=== PATIENT | female | born 1955 | race Caucasian/White ===

== ENCOUNTER 2016-04-13 11:41 | Emergency (ER) | payer MEDICAID, MEDICARE ==
[2016-04-13] MEDS ORDERED: DIPH,PERTUS(ACELL)TETVAC-LF 0.5 ML VIAL IM ONE (12:06)
--- NOTE | 2016-04-13 12:10 | ED ---
Neuro HPI - General Chief Complaint: Neuro Symptoms/Deficit Stated Complaint: Confusion Time Seen by Provider: 04/13/16 11:50 Source: patient, RN notes reviewed Mode of arrival: ambulatory Limitations: no limitations - History of Present Illness Is the patient presenting with stroke symptoms?: No Initial Comments: This is a 60-year-old female history of TIA and diabetes who presents for evaluation for some confusion and a headache. She states she had really bad headache 2 days ago she states she woke up with a bump on her forehead. She does not remember falling. She has some pain to her front forehead as well as to her lower thoracic back area. She states her glucoses been running elevated over last couple days. She denies any fevers chills or sweats. She states that yesterday she was acting pain differently with respective consciously asking her repetitive questions about her doing things correctly. She has no history of syncope does have history of again of TIAs. She has no focal weakness. She denies any other symptoms she has any fevers chills nausea vomiting sweats. - Related Data Home Medications: Home Medications Medication Instructions Recorded Confirmed rOPINIRole HCL [Requip] 3 mg PO HS 06/24/13 04/13/16 Losartan/Hydrochlorothiazide 1 tab PO DAILY 08/06/15 04/13/16 [Hyzaar 100-12.5 Tablet] Insulin Aspart (For Pump) [NovoLOG 0.01 unit SQ-PUMP CONTINUOUS 04/07/16 (For Pump)] Sertraline [Zoloft] 50 mg PO DAILY 04/07/16 04/13/16 ALPRAZolam [Xanax] 1 mg PO BID PRN 04/13/16 04/13/16 Aspirin EC [Ecotrin Low Dose] 81 mg PO DAILY 04/13/16 04/13/16 Allergies/Adverse Reactions: Allergies Allergy/AdvReac Type Severity Reaction Status Date / Time codeine Allergy Itching Verified 04/13/16 13:39 morphine Allergy Rash/Hives Verified 04/13/16 13:39 Sulfa (Sulfonamide Allergy Rash/Hives Verified 04/13/16 13:39 Antibiotics) Review of Systems ROS Statement: Those systems with pertinent positive or pertinent negative responses have been documented in the HPI. ROS Other: All systems not noted in ROS Statement are negative. General Exam - General Exam Comments Initial Comments: This is a well-developed well-nourished awake alert oriented 3 female she does have a [place] Coma Scale of 15 Limitations: no limitations General appearance: alert, anxious Head exam: Present: normocephalic, other (There is a abrasion across the right upper forehead with some localized edema no step-off or crepitation.) Eye exam: Present: normal appearance, PERRL, EOMI. Absent: scleral icterus, conjunctival injection, periorbital swelling ENT exam: Present: normal exam, mucous membranes moist Neck exam: Present: normal inspection. Absent: tenderness, meningismus, lymphadenopathy Respiratory exam: Present: normal lung sounds bilaterally. Absent: respiratory distress, wheezes, rales, rhonchi, stridor Cardiovascular Exam: Present: regular rate, normal rhythm, normal heart sounds. Absent: systolic murmur, diastolic murmur, rubs, gallop, clicks GI/Abdominal exam: Present: soft, normal bowel sounds. Absent: distended, tenderness, guarding, rebound, rigid Extremities exam: Present: normal inspection, full ROM, normal capillary refill. Absent: tenderness, pedal edema, joint swelling, calf tenderness Back exam: Present: normal inspection, tenderness (Some tenderness palpation along the paraspinous muscles of the lower thoracic spine no step-off or crepitation.), paraspinal tenderness, vertebral tenderness. Absent: CVA tenderness (R), CVA tenderness (L), rash noted Neurological exam: Present: alert, oriented X3, CN II-XII intact Psychiatric exam: Present: normal affect, normal mood Skin exam: Present: warm, dry, intact, normal color. Absent: rash Stroke MDM - Lab Data Result diagrams: 04/13/16 12:20 04/13/16 12:20 Lab Results 04/13/16 04/13/16 04/13/16 Range/Units 12:20 12:20 12:20 WBC 6.4 (3.8-10.6) k/uL RBC 4.90 (3.80-5.40) m/uL Hgb 14.8 (11.4-16.0) gm/dL Hct 43.7 (34.0-46.0) % MCV 89.1 (80.0-100.0) fL MCH 30.2 (25.0-35.0) pg MCHC 33.9 (31.0-37.0) g/dL RDW 12.6 (11.5-15.5) % Plt Count 251 (150-450) k/uL Neutrophils % 63 % Lymphocytes % 25 % Monocytes % 6 % Eosinophils % 3 % Basophils % 1 % Neutrophils # 4.0 (1.3-7.7) k/uL Lymphocytes # 1.6 (1.0-4.8) k/uL Monocytes # 0.4 (0-1.0) k/uL Eosinophils # 0.2 (0-0.7) k/uL Basophils # 0.0 (0-0.2) k/uL PT (9.0-12.0) sec INR (<1.1) APTT (22.0-30.0) sec Sodium 141 (137-145) mmol/L Potassium 3.7 (3.5-5.1) mmol/L Chloride 103 (98-107) mmol/L Carbon Dioxide 24 (22-30) mmol/L Anion Gap 14 mmol/L BUN 18 H (7-17) mg/dL Creatinine 0.61 (0.52-1.04) mg/dL Est GFR (MDRD) Af Amer >60 (>60 ml/min/1.73 sqM) Est GFR (MDRD) Non-Af >60 (>60 ml/min/1.73 sqM) Glucose 167 H (74-99) mg/dL POC Glucose (mg/dL) (75-99) mg/dL POC Glu [employer] ID Calcium 9.7 (8.4-10.2) mg/dL Magnesium 1.6 (1.6-2.3) mg/dL Total Bilirubin 0.7 (0.2-1.3) mg/dL AST 18 (14-36) U/L ALT 32 (9-52) U/L Alkaline Phosphatase 79 (38-126) U/L Ammonia (<30) umol/L Total Creatine Kinase 59 (30-135) U/L CK-MB (CK-2) 0.6 (0.0-2.4) ng/mL CK-MB (CK-2) Rel Index 1.0 Troponin I <0.012 (0.000-0.034) ng/mL Total Protein 7.7 (6.3-8.2) g/dL Albumin 4.5 (3.5-5.0) g/dL Urine Color Urine Appearance (Clear) Urine pH (5.0-8.0) Ur Specific Deep Gap (1.001-1.035) Urine Protein (Negative) Urine Glucose (UA) (Negative) Urine Ketones (Negative) Urine Blood (Negative) Urine Nitrate (Negative) Urine Bilirubin (Negative) Urine Urobilinogen (<2.0) mg/dL Ur Leukocyte Esterase (Negative) Urine Opiates Screen (NotDetected) Ur Oxycodone Screen (NotDetected) Urine Methadone Screen (NotDetected) Ur Propoxyphene Screen (NotDetected) Ur Barbiturates Screen (NotDetected) U Tricyclic Antidepress (NotDetected) Ur Phencyclidine Scrn (NotDetected) Ur Amphetamines Screen (NotDetected) U Methamphetamines Scrn (NotDetected) U Benzodiazepines Scrn (NotDetected) Urine Cocaine Screen (NotDetected) U Marijuana (THC) Screen (NotDetected) 04/13/16 04/13/16 04/13/16 Range/Units 12:20 12:25 13:13 WBC (3.8-10.6) k/uL RBC (3.80-5.40) m/uL Hgb (11.4-16.0) gm/dL Hct (34.0-46.0) % MCV (80.0-100.0) fL MCH (25.0-35.0) pg MCHC (31.0-37.0) g/dL RDW (11.5-15.5) % Plt Count (150-450) k/uL Neutrophils % % Lymphocytes % % Monocytes % % Eosinophils % % Basophils % % Neutrophils # (1.3-7.7) k/uL Lymphocytes # (1.0-4.8) k/uL Monocytes # (0-1.0) k/uL Eosinophils # (0-0.7) k/uL Basophils # (0-0.2) k/uL PT 9.8 (9.0-12.0) sec INR 1.0 (<1.1) APTT 24.1 (22.0-30.0) sec Sodium (137-145) mmol/L Potassium (3.5-5.1) mmol/L Chloride (98-107) mmol/L Carbon Dioxide (22-30) mmol/L Anion Gap mmol/L BUN (7-17) mg/dL Creatinine (0.52-1.04) mg/dL Est GFR (MDRD) Af Amer (>60 ml/min/1.73 sqM) Est GFR (MDRD) Non-Af (>60 ml/min/1.73 sqM) Glucose (74-99) mg/dL POC Glucose (mg/dL) 157 H (75-99) mg/dL POC Glu [employer] ID Maki Brewer Calcium (8.4-10.2) mg/dL Magnesium (1.6-2.3) mg/dL Total Bilirubin (0.2-1.3) mg/dL AST (14-36) U/L ALT (9-52) U/L Alkaline Phosphatase (38-126) U/L Ammonia <9 (<30) umol/L Total Creatine Kinase (30-135) U/L CK-MB (CK-2) (0.0-2.4) ng/mL CK-MB (CK-2) Rel Index Troponin I (0.000-0.034) ng/mL Total Protein (6.3-8.2) g/dL Albumin (3.5-5.0) g/dL Urine Color Urine Appearance (Clear) Urine pH (5.0-8.0) Ur Specific Deep Gap (1.001-1.035) Urine Protein (Negative) Urine Glucose (UA) (Negative) Urine Ketones (Negative) Urine Blood (Negative) Urine Nitrate (Negative) Urine Bilirubin (Negative) Urine Urobilinogen (<2.0) mg/dL Ur Leukocyte Esterase (Negative) Urine Opiates Screen (NotDetected) Ur Oxycodone Screen (NotDetected) Urine Methadone Screen (NotDetected) Ur Propoxyphene Screen (NotDetected) Ur Barbiturates Screen (NotDetected) U Tricyclic Antidepress (NotDetected) Ur Phencyclidine Scrn (NotDetected) Ur Amphetamines Screen (NotDetected) U Methamphetamines Scrn (NotDetected) U Benzodiazepines Scrn (NotDetected) Urine Cocaine Screen (NotDetected) U Marijuana (THC) Screen (NotDetected) 04/13/16 04/13/16 Range/Units 13:30 13:30 WBC (3.8-10.6) k/uL RBC (3.80-5.40) m/uL Hgb (11.4-16.0) gm/dL Hct (34.0-46.0) % MCV (80.0-100.0) fL MCH (25.0-35.0) pg MCHC (31.0-37.0) g/dL RDW (11.5-15.5) % Plt Count (150-450) k/uL Neutrophils % % Lymphocytes % % Monocytes % % Eosinophils % % Basophils % % Neutrophils # (1.3-7.7) k/uL Lymphocytes # (1.0-4.8) k/uL Monocytes # (0-1.0) k/uL Eosinophils # (0-0.7) k/uL Basophils # (0-0.2) k/uL PT (9.0-12.0) sec INR (<1.1) APTT (22.0-30.0) sec Sodium (137-145) mmol/L Potassium (3.5-5.1) mmol/L Chloride (98-107) mmol/L Carbon Dioxide (22-30) mmol/L Anion Gap mmol/L BUN (7-17) mg/dL Creatinine (0.52-1.04) mg/dL Est GFR (MDRD) Af Amer (>60 ml/min/1.73 sqM) Est GFR (MDRD) Non-Af (>60 ml/min/1.73 sqM) Glucose (74-99) mg/dL POC Glucose (mg/dL) (75-99) mg/dL POC Glu [employer] ID Calcium (8.4-10.2) mg/dL Magnesium (1.6-2.3) mg/dL Total Bilirubin (0.2-1.3) mg/dL AST (14-36) U/L ALT (9-52) U/L Alkaline Phosphatase (38-126) U/L Ammonia (<30) umol/L Total Creatine Kinase (30-135) U/L CK-MB (CK-2) (0.0-2.4) ng/mL CK-MB (CK-2) Rel Index Troponin I (0.000-0.034) ng/mL Total Protein (6.3-8.2) g/dL Albumin (3.5-5.0) g/dL Urine Color Yellow Urine Appearance Clear (Clear) Urine pH 6.0 (5.0-8.0) Ur Specific [place] 1.014 (1.001-1.035) Urine Protein Negative (Negative) Urine Glucose (UA) Negative (Negative) Urine Ketones Negative (Negative) Urine Blood Negative (Negative) Urine Nitrate Negative (Negative) Urine Bilirubin Negative (Negative) Urine Urobilinogen <2.0 (<2.0) mg/dL Ur Leukocyte Esterase Negative (Negative) Urine Opiates Screen Not Detected (NotDetected) Ur Oxycodone Screen Not Detected (NotDetected) Urine Methadone Screen Not Detected (NotDetected) Ur Propoxyphene Screen Not Detected (NotDetected) Ur Barbiturates Screen Not Detected (NotDetected) U Tricyclic Antidepress Not Detected (NotDetected) Ur Phencyclidine Scrn Not Detected (NotDetected) Ur Amphetamines Screen Not Detected (NotDetected) U Methamphetamines Scrn Not Detected (NotDetected) U Benzodiazepines Scrn Detected H (NotDetected) Urine Cocaine Screen Not Detected (NotDetected) U Marijuana (THC) Screen Not Detected (NotDetected) - NIH Stroke Scale 1a. Level of Consciousness: (0) alert 1b. LOC Questions: (0) answers correctly 1c. LOC Commands: (0) performs tasks correctly 2. Best Gaze: (0) normal 3. Visual: (0) no visual loss 4. Facial Palsy: (0) normal symmetrical movement 5a. Motor Arm Left: (0) no drift 5b. Motor Arm Right: (0) no drift 6a. Motor Leg Left: (0) no drift 6b. Motor Leg Right: (0) no drift 7. Limb Ataxia: (0) absent 8. Sensory: (0) normal 9. Best Language: (0) no aphasia 10. Dysarthria: (0) normal 11. Extinction/Inattention: (0) no abnormality - Medical Decision Making I did reevaluate patient several occasions she has no further symptoms. I did discuss the findings with her CAT scans show no acute findings x-rays are negative for acute findings I did a long discussion with the patient regarding the findings I did offer the patient admission she does not want to be admitted today. She will follow-up with [facility] doctor in the office she relates these symptoms to similar things of happen the past when she is involved in waiting planning she states she was doing a wedding over this past week and before the symptoms started. She was invited to come back at any time. - EKG Data -: EKG Interpreted by Me EKG shows normal: sinus rhythm (Sinus rhythm a rate of 75. Interval and 72 QRS duration 92 QT/QTC of 14/457. Criteria for LVH nonspecific ST configuration.) Past Medical History Past Medical History: CVA/TIA, Diabetes Mellitus, Hyperlipidemia, Hypertension Additional Past Medical History / Comment(s): uti(ecoli)06-13-14, tia, migraines, kidney stones, dm-insulin pump. History of Any Multi-Drug Resistant Organisms: None Reported Past Surgical History: Cholecystectomy Additional Past Surgical History / Comment(s): colonoscopy, pain clinic procedures(cervical blocks). Past Anesthesia/Blood Transfusion Reactions: No Reported Reaction Past Psychological History: Anxiety Smoking Status: Never smoker Past Alcohol Use History: None Reported Past Drug Use History: None Reported - Past Family History Father Family Medical History: Cancer, CVA/TIA, Diabetes Mellitus, Hypertension Additional Family Medical History / Comment(s): colon cancer Mother Family Medical History: Cancer, Hypertension Additional Family Medical History / Comment(s): skin ca, gastric bypass. on mothers side of family hx of strokes Course Vital Signs 04/13/16 04/13/16 04/13/16 11:42 12:00 13:37 Temperature 98.0 F Pulse Rate 82 83 73 Respiratory 20 18 18 Rate Blood Pressure 170/82 151/96 141/81 O2 Sat by Pulse 99 96 Oximetry 04/13/16 04/13/16 04/13/16 14:07 14:37 15:17 Temperature 97.8 F Pulse Rate 81 67 98 Respiratory 18 18 18 Rate Blood Pressure 141/85 135/86 135/82 O2 Sat by Pulse 95 Oximetry Disposition Clinical Impression: Headache, Forehead contusion, Dehydration Disposition: HOME SELF-CARE Condition: Good Instructions: Acute Headache (ED), Facial Contusion (ED), Dehydration (ED)
[2016-04-13 12:38] LABS: Basophils % (A) 1 %; CH 30.7; CHCM 34.6; Eosinophils # (A) 0.2 k/uL (0-0.7); Eosinophils % (A) 3 %; HCT 43.7 % (34.0-46.0); HDW 2.53; HGB 14.8 gm/dL (11.4-16.0); Luc # (Auto) 0.17; Luc % (Auto) 3; Lymphocytes # (A) 1.6 k/uL (1.0-4.8); Lymphocytes % (A) 25 %; MCH 30.2 pg (25.0-35.0); MCHC 33.9 g/dL (31.0-37.0); MCV 89.1 fL (80.0-100.0); Mean Platelet Volume 7.4; Monocytes # (A) 0.4 k/uL (0-1.0); Monocytes % (A) 6 %; Neutrophils % (A) 63 %; RDW 12.6 % (11.5-15.5); WBC 6.4 k/uL (3.8-10.6); WBC (Perox) 5.77
[2016-04-13 12:48] LABS: ALT 32 U/L (9-52); AST 18 U/L (14-36); Alkaline Phosphatase 79 U/L (38-126); Anion Gap 14 mmol/L; Blood Urea Nitrogen 18 mg/dL (7-17); Calcium 9.7 mg/dL (8.4-10.2); Carbon Dioxide 24 mmol/L (22-30); Chloride 103 mmol/L (98-107); Glucose 167 mg/dL (74-99); Magnesium 1.6 mg/dL (1.6-2.3); Non-African American GFR(MDRD) >60 (>60 ml/min/1.73 sqM); Partial Thromboplastin Time 24.1 sec (22.0-30.0); Potassium 3.7 mmol/L (3.5-5.1); Prothrombin Time 9.8 sec (9.0-12.0); Sodium 141 mmol/L (137-145); Total Bilirubin 0.7 mg/dL (0.2-1.3); Total Protein 7.7 g/dL (6.3-8.2)
--- NOTE | 2016-04-13 12:56 | XR ---
EXAMINATION TYPE: XR chest 2V DATE OF EXAM: 04/13/2016 12:49 PM COMPARISON: 08/06/2015 HISTORY: 60 year-old female altered mental status TECHNIQUE: Frontal and lateral views FINDINGS: Lung volumes are low crowding the vascular markings. Heart is normal size. Some hazy density in the l ower lungs likely related to overlying soft tissue. Some mild interstitial prominence likely chronic senescent change. No consolidation or pleural effusion. IMPRESSION: Hypoventilatory and other chronic changes. No acute process seen.
[2016-04-13 13:11] LABS: Creatine Kinase 59 U/L (30-135)
--- NOTE | 2016-04-13 13:12 | CT ---
EXAMINATION TYPE: CT brain yazmin wo con DATE OF EXAM: 04/13/2016 12:56 PM COMPARISON: NONE HISTORY: 60-year-old female with confusion, memory loss and weakness CT DLP: 1353.1 mGycm Automated exposure control for dose reduction was used. Technique: Examination of the head was done in axial plane without intravenous contrast. Coronal and sagittal reconstructions performed. CT of the cervical spine was obtained in axial plane without intravenous injection of contrast mater ial. Coronal and sagittal reformatted images were obtained from the axial views for evaluation of f ractures, spinal alignment and canal. FINDINGS: Head: There is no evidence of acute intracranial hemorrhage, acute ischemic changes, mass, mass-effect, or extra-axial fluid collection. There is no effacement of cerebral sulci or basal subarachnoid cister ns. There is no hydrocephalus. There is no midline shift. Pringle-white matter distinction is preserv ed. Patchy subcortical and deep white matter hypodensities especially in the right greater than left fron estrella lobes appear slightly increased from 08/06/2015 Paranasal sinuses and mastoid air cells well pneumatized. Orbits and globes are intact. Cervical spine: No craniocervical junction of the midbody, predental space widening, or prevertebral soft tissue swel ling. There is reversal of the normal cervical lordosis without malalignment. Moderate disc/end plate degenerative change especially at C5-C7 levels with disc osteophyte complexes causing mild to moderate narrowing of the spinal canal. Additional scattered facet and uncovertebral joint arthropathy contributing to variable mild to moder ate neural foraminal stenoses, greatest on the right at C3-C4, C5-C6, and C6-C7. No acute fracture of the cervical spine. Sagittal and coronal reformatted images confirm above findings. COMBINED IMPRESSION: 1. [id number] changes of chronic small vessel ischemic disease show interval increase from 08/05. No acute intracranial abnormality seen. 2. No acute fracture or malalignment of the cervical spine. Moderate spondylotic changes as above.
[2016-04-13 13:17] LABS: Glucose,Whole Blood 157 mg/dL (75-99)
[2016-04-13 13:23] LABS: Creatine Kinase MB 0.6 ng/mL (0.0-2.4); Troponin I <0.012 ng/mL (0.000-0.034)
[2016-04-13] MEDS ORDERED: ACETAMINOPHEN IV (For NPO) 1,000 MG in EMPTY BAG 1 BAG IVPB STA (13:39)
[2016-04-13 13:48] LABS: Appearance,Urine Clear (Clear); Bilirubin,Urine Negative (Negative); Glucose,Urine (UA) Negative (Negative); Ketones,Urine Negative (Negative); Leukocyte Esterase,Urine Negative (Negative); Nitrite,Urine Negative (Negative); Protein,Urine Negative (Negative); Specific Gravity,Urine 1.014 (1.001-1.035); UA Billing (MACRO vs. MICRO) CHEM; Urobilinogen,Urine <2.0 mg/dL (<2.0)
[2016-04-13 15:48] VITALS: BP 138/83; PULSE 80; RESP 20; TEMP 97
== END 2016-04-13 15:52 | disposition home or self-care (01) ==
LOC: EC 11:41
DX: R51 Headache (principal); E86.0 Dehydration; S00.83XA Contusion of other part of head, initial encounter; X58.XXXA Exposure to other specified factors, initial encounter; I10 Essential (primary) hypertension; E11.9 Type 2 diabetes mellitus without complications; F41.9 Anxiety disorder, unspecified; Z79.82 Long term (current) use of aspirin; Z79.4 Long term (current) use of insulin; Z96.41 Presence of insulin pump (external) (internal); Z86.73 Personal history of transient ischemic attack (TIA), and cerebral infarction without residual deficits; Z23 Encounter for immunization
CPT/HCPCS: 36415; 93005; 80053; 82140; 82550; 82553; 83735; 84484; 85025; 85610; 85730; 81003; 80306; 71020; 72125; 70450; 90715; 99285; 96365; 96366; J0131; 90471

== ENCOUNTER → 2016-11-01 | Outpatient (CLI) | payer MEDICAID, MEDICARE ==
[2016-11-01 09:46] LABS: ALT 42 U/L (9-52); AST 22 U/L (14-36); Alkaline Phosphatase 76 U/L (38-126); Anion Gap 11 mmol/L; Blood Urea Nitrogen 18 mg/dL (7-17); Calcium 9.5 mg/dL (8.4-10.2); Carbon Dioxide 21 mmol/L (22-30); Chloride 110 mmol/L (98-107); Cholesterol 216 mg/dL (<200); Glucose 104 mg/dL (74-99); HDL Cholesterol 57 mg/dL (40-60); Non-African American GFR(MDRD) >60 (>60 ml/min/1.73 sqM); Sodium 142 mmol/L (137-145); Total Bilirubin 0.9 mg/dL (0.2-1.3); Total Protein 7.4 g/dL (6.3-8.2)
[2016-11-01 17:11] LABS: Urine Creatinine 158.1 mg/dL
== END | disposition home or self-care (01) ==
LOC: LABWHC1 08:33
PROVIDERS: ATTEND Internal Medicine Endocrinology, Diabetes & Metabolism
DX: E11.65 Type 2 diabetes mellitus with hyperglycemia (principal)
CPT/HCPCS: 36415; 80053; 80061; 82043; 82570; 84443; 84681

== ENCOUNTER 2016-11-17 20:33 | Emergency (ER) | payer MEDICAID, MEDICARE ==
[2016-11-17] MEDS ORDERED: METOCLOPRAMIDE 5 MG/ML 2 ML VIAL IVP STA (22:54)
[2016-11-17] MEDS ORDERED: SODIUM CHLORIDE 0.9% 2,000 ML IV STA (22:54)
[2016-11-17] MEDS ORDERED: PANTOPRAZOLE 40 MG/10 ML VIAL IVP STA (22:54)
[2016-11-17] MEDS ORDERED: KETOROLAC 30 MG/ML 1 ML VIAL IVP STA (22:54)
[2016-11-17] MEDS ORDERED: diphenhydrAMINE 50 MG/ML 1 ML VIAL IVP STA (22:54)
[2016-11-17] MEDS ORDERED: RX INFO: IV CONTRAST WAS GIVEN 1 EACH MISC MISCELLANE PRN (22:56)
--- NOTE | 2016-11-17 23:03 | ED ---
Abdominal Pain HPI - General Chief Complaint: Abdominal Pain Stated Complaint: Abd Pain Time Seen by Provider: 11/17/16 22:24 Source: patient, RN notes reviewed, old records reviewed Mode of arrival: ambulatory Limitations: no limitations - History of Present Illness Initial Comments: This is a 61-year-old female presents emergency Department with intermittent left lower quadrant pain for the past month. Patient reports that over the past 2 days with been increasingly worse. Patient states that it feels like she has pressure on her bladder. She denies any dysuria or urgency states she is unsure if she has a urinary tract infection or may be a exacerbation of diverticulitis. She denies any specific fevers or chills. She reports that the pain is worse with going over bumps in the car or jumping up and down. Patient denies any blood in her stools. She did have a normal bowel movement earlier today. - Related Data Home Medications Medication Instructions Recorded Confirmed rOPINIRole HCL [Requip] 3 mg PO HS 06/24/13 04/13/16 Losartan/Hydrochlorothiazide 1 tab PO DAILY 08/06/15 04/13/16 [Hyzaar 100-12.5 Tablet] Insulin Aspart (For Pump) [NovoLOG 0.01 unit SQ-PUMP CONTINUOUS 04/07/16 (For Pump)] Sertraline [Zoloft] 50 mg PO DAILY 04/07/16 04/13/16 ALPRAZolam [Xanax] 1 mg PO BID PRN 04/13/16 04/13/16 Aspirin EC [Ecotrin Low Dose] 81 mg PO DAILY 04/13/16 04/13/16 Previous Rx's Medication Instructions Recorded Amoxic-Pot Clav 875-125Mg 1 tab PO Q12HR #20 tablet 11/18/16 [Augmentin 875-125] traMADol HCl [Ultram] 50 mg PO Q4H PRN #12 tab 11/18/16 Allergies Allergy/AdvReac Type Severity Reaction Status Date / Time codeine Allergy Itching Verified 11/17/16 21:41 morphine Allergy Rash/Hives Verified 11/17/16 21:41 Sulfa (Sulfonamide Allergy Rash/Hives Verified 11/17/16 21:41 Antibiotics) Review of Systems ROS Statement: Those systems with pertinent positive or pertinent negative responses have been documented in the HPI. ROS Other: All systems not noted in ROS Statement are negative. Past Medical History Past Medical History: CVA/TIA, Diabetes Mellitus, Hyperlipidemia, Hypertension Additional Past Medical History / Comment(s): uti(ecoli)15, tia, migraines, kidney stones, dm-insulin pump. History of Any Multi-Drug Resistant Organisms: None Reported Past Surgical History: Cholecystectomy Additional Past Surgical History / Comment(s): colonoscopy, pain clinic procedures(cervical blocks). Past Anesthesia/Blood Transfusion Reactions: No Reported Reaction Past Psychological History: Anxiety Smoking Status: Never smoker Past Alcohol Use History: None Reported Past Drug Use History: None Reported - Past Family History Father Family Medical History: Cancer, CVA/TIA, Diabetes Mellitus, Hypertension Additional Family Medical History / Comment(s): colon cancer Mother Family Medical History: Cancer, Hypertension Additional Family Medical History / Comment(s): skin ca, gastric bypass. on mothers side of family hx of strokes General Exam - General Exam Comments Initial Comments: His is a 61-year-old female. No acute distress. Limitations: no limitations General appearance: alert, in no apparent distress Head exam: Present: atraumatic, normocephalic, normal inspection Eye exam: Present: normal appearance, PERRL, EOMI. Absent: scleral icterus, conjunctival injection, periorbital swelling ENT exam: Present: normal exam, mucous membranes moist Neck exam: Present: normal inspection. Absent: tenderness, meningismus, lymphadenopathy Respiratory exam: Present: normal lung sounds bilaterally. Absent: respiratory distress, wheezes, rales, rhonchi, stridor Cardiovascular Exam: Present: regular rate, normal rhythm, normal heart sounds. Absent: systolic murmur, diastolic murmur, rubs, gallop, clicks GI/Abdominal exam: Present: soft, tenderness (LLQ pain), normal bowel sounds. Absent: distended, guarding, rebound, rigid Extremities exam: Present: normal inspection Back exam: Present: normal inspection Neurological exam: Present: alert, oriented X3, CN II-XII intact Psychiatric exam: Present: normal affect, normal mood Course Vital Signs 11/17/16 11/17/16 11/17/16 21:39 22:51 23:36 Temperature 98.0 F 98.4 F 96.9 F L Pulse Rate 77 70 94 Respiratory 18 18 18 Rate Blood Pressure 187/88 192/88 175/148 O2 Sat by Pulse 99 98 99 Oximetry 11/18/16 01:17 Temperature 97.8 F Pulse Rate 73 Respiratory 16 Rate Blood Pressure 165/80 O2 Sat by Pulse 98 Oximetry Medical Decision Making - Medical Decision Making This is a 61-year-old female presents emergency Department with intermittent left lower quadrant pain for the past month. Patient reports that over the past 2 days with been increasingly worse. Patient states that it feels like she has pressure on her bladder. She denies any dysuria or urgency states she is unsure if she has a urinary tract infection or may be a exacerbation of diverticulitis. Patient did have significant LLQ tenderness. PAtient lab work was unremarkable, UA shows no signs of infection. WBC within normal limitis. At this time patient informed of results. Discussed that she may have a mild or early diverticulitis. Patient will be started on augmentin and advised to continute to stay hydrated. Discussed close follow up with PCP, and return parameters discussed. - Lab Data Result diagrams: 11/17/16 23:15 11/17/16 23:15 Lab Results 11/17/16 11/17/16 11/17/16 Range/Units 23:15 23:15 23:15 WBC 5.7 (3.8-10.6) k/uL RBC 4.25 (3.80-5.40) m/uL Hgb 12.9 (11.4-16.0) gm/dL Hct 39.7 (34.0-46.0) % MCV 93.3 (80.0-100.0) fL MCH 30.3 (25.0-35.0) pg MCHC 32.4 (31.0-37.0) g/dL RDW 13.9 (11.5-15.5) % Plt Count 262 (150-450) k/uL Neutrophils % 55 % Lymphocytes % 32 % Monocytes % 8 % Eosinophils % 4 % Basophils % 1 % Neutrophils # 3.1 (1.3-7.7) k/uL Lymphocytes # 1.8 (1.0-4.8) k/uL Monocytes # 0.4 (0-1.0) k/uL Eosinophils # 0.2 (0-0.7) k/uL Basophils # 0.0 (0-0.2) k/uL PT 9.7 (9.0-12.0) sec INR 0.9 (<1.2) APTT 24.6 (22.0-30.0) sec Sodium 141 (137-145) mmol/L Potassium 4.2 (3.5-5.1) mmol/L Chloride 104 (98-107) mmol/L Carbon Dioxide 28 (22-30) mmol/L Anion Gap 9 mmol/L BUN 14 (7-17) mg/dL Creatinine 0.60 (0.52-1.04) mg/dL Est GFR (MDRD) Af Amer >60 (>60 ml/min/1.73 sqM) Est GFR (MDRD) Non-Af >60 (>60 ml/min/1.73 sqM) Glucose 289 H (74-99) mg/dL Calcium 9.8 (8.4-10.2) mg/dL Total Bilirubin 0.3 (0.2-1.3) mg/dL AST 16 (14-36) U/L ALT 36 (9-52) U/L Alkaline Phosphatase 73 (38-126) U/L Total Protein 6.3 (6.3-8.2) g/dL Albumin 3.7 (3.5-5.0) g/dL Amylase 34 (30-110) U/L Lipase 135 (23-300) U/L Urine Color Urine Appearance (Clear) Urine pH (5.0-8.0) Ur Specific [place] (1.001-1.035) Urine Protein (Negative) Urine Glucose (UA) (Negative) Urine Ketones (Negative) Urine Blood (Negative) Urine Nitrite (Negative) Urine Bilirubin (Negative) Urine Urobilinogen (<2.0) mg/dL Ur Leukocyte Esterase (Negative) Ur Squamous Epith Cells (0-4) /hpf Amorphous Sediment (None) /hpf Urine Bacteria (None) /hpf 11/17/16 Range/Units 23:35 WBC (3.8-10.6) k/uL RBC (3.80-5.40) m/uL Hgb (11.4-16.0) gm/dL Hct (34.0-46.0) % MCV (80.0-100.0) fL MCH (25.0-35.0) pg MCHC (31.0-37.0) g/dL RDW (11.5-15.5) % Plt Count (150-450) k/uL Neutrophils % % Lymphocytes % % Monocytes % % Eosinophils % % Basophils % % Neutrophils # (1.3-7.7) k/uL Lymphocytes # (1.0-4.8) k/uL Monocytes # (0-1.0) k/uL Eosinophils # (0-0.7) k/uL Basophils # (0-0.2) k/uL PT (9.0-12.0) sec INR (<1.2) APTT (22.0-30.0) sec Sodium (137-145) mmol/L Potassium (3.5-5.1) mmol/L Chloride (98-107) mmol/L Carbon Dioxide (22-30) mmol/L Anion Gap mmol/L BUN (7-17) mg/dL Creatinine (0.52-1.04) mg/dL Est GFR (MDRD) Af Amer (>60 ml/min/1.73 sqM) Est GFR (MDRD) Non-Af (>60 ml/min/1.73 sqM) Glucose (74-99) mg/dL Calcium (8.4-10.2) mg/dL Total Bilirubin (0.2-1.3) mg/dL AST (14-36) U/L ALT (9-52) U/L Alkaline Phosphatase (38-126) U/L Total Protein (6.3-8.2) g/dL Albumin (3.5-5.0) g/dL Amylase (30-110) U/L Lipase (23-300) U/L Urine Color Light Yellow Urine Appearance Cloudy H (Clear) Urine pH 7.0 (5.0-8.0) Ur Specific [place] 1.012 (1.001-1.035) Urine Protein Negative (Negative) Urine Glucose (UA) 4+ H (Negative) Urine Ketones Negative (Negative) Urine Blood Negative (Negative) Urine Nitrite Negative (Negative) Urine Bilirubin Negative (Negative) Urine Urobilinogen <2.0 (<2.0) mg/dL Ur Leukocyte Esterase Trace H (Negative) Ur Squamous Epith Cells 1 (0-4) /hpf Amorphous Sediment Rare H (None) /hpf Urine Bacteria Occasional H (None) /hpf - Radiology Data Radiology results: report reviewed CT abdomen and pelvis with contrast performed. Small upper abdominal ventral hernia contents. This is stable compared to exam. No acute abnormality seen. Small stable left renal cortical cyst. Disposition Clinical Impression: Abdominal pain Disposition: HOME SELF-CARE Condition: Good Instructions: Abdominal Pain (ED) Additional Instructions: recommendation follows up with primary care provider within the next 1-2 days. Take pain medication and does return. Return to the emergency department if any alarming signs or his occur. Prescriptions: Amoxic-Pot Clav 875-125Mg [Augmentin 875-125] 1 tab PO Q12HR #20 tablet traMADol HCl [Ultram] 50 mg PO Q4H PRN #12 tab PRN Reason: Pain Referrals: Harshil Robledo DO [Primary Care Provider] - 1-2 days Time of Disposition: 01:32
[2016-11-17 23:38] LABS: Basophils % (A) 1 %; CH 31.1; CHCM 33.5; Eosinophils # (A) 0.2 k/uL (0-0.7); Eosinophils % (A) 4 %; HCT 39.7 % (34.0-46.0); HDW 2.43; HGB 12.9 gm/dL (11.4-16.0); Luc # (Auto) 0.12; Luc % (Auto) 2; Lymphocytes # (A) 1.8 k/uL (1.0-4.8); Lymphocytes % (A) 32 %; MCH 30.3 pg (25.0-35.0); MCHC 32.4 g/dL (31.0-37.0); MCV 93.3 fL (80.0-100.0); Mean Platelet Volume 7.7; Monocytes # (A) 0.4 k/uL (0-1.0); Monocytes % (A) 8 %; Neutrophils # (A) 3.1 k/uL (1.3-7.7); Neutrophils % (A) 55 %; RBC 4.25 m/uL (3.80-5.40); RDW 13.9 % (11.5-15.5); WBC 5.7 k/uL (3.8-10.6); WBC (Perox) 6.02
[2016-11-17 23:44] LABS: Amorphous Sediment,Urine Rare /hpf; Appearance,Urine Cloudy (Clear); Bacteria,Urine Occasional /hpf; Bilirubin,Urine Negative (Negative); Glucose,Urine (UA) 4+ (Negative); Ketones,Urine Negative (Negative); Leukocyte Esterase,Urine Trace (Negative); Nitrite,Urine Negative (Negative); Particle Count 7417; Protein,Urine Negative (Negative); Specific Gravity,Urine 1.012 (1.001-1.035); Squamous Epithelial Cell,Urine 1 /hpf (0-4); UA Billing (MACRO vs. MICRO) MICRO; Urobilinogen,Urine <2.0 mg/dL (<2.0)
[2016-11-17 23:50] LABS: INR 0.9 (<1.2); Partial Thromboplastin Time 24.6 sec (22.0-30.0); Prothrombin Time 9.7 sec (9.0-12.0)
[2016-11-17 23:55] LABS: ALT 36 U/L (9-52); AST 16 U/L (14-36); Alkaline Phosphatase 73 U/L (38-126); Amylase 34 U/L (30-110); Anion Gap 9 mmol/L; Blood Urea Nitrogen 14 mg/dL (7-17); Calcium 9.8 mg/dL (8.4-10.2); Carbon Dioxide 28 mmol/L (22-30); Chloride 104 mmol/L (98-107); Glucose 289 mg/dL (74-99); Non-African American GFR(MDRD) >60 (>60 ml/min/1.73 sqM); Potassium 4.2 mmol/L (3.5-5.1); Sodium 141 mmol/L (137-145); Total Bilirubin 0.3 mg/dL (0.2-1.3); Total Protein 6.3 g/dL (6.3-8.2)
--- NOTE | 2016-11-18 01:05 | CT ---
EXAMINATION TYPE: CT abdomen pelvis w con DATE OF EXAM: 11/18/2016 COMPARISON: 07/14/2013 HISTORY: lower abd pain CT DLP: 895.60 mGycm Automated exposure control for dose reduction was used. TECHNIQUE: Helical acquisition of images was performed from the lung bases through the pelvis. CONTRAST: Performed without Oral Contrast and with IV Contrast, patient injected with 100 mL of Omnipaque 300. FINDINGS: Lung bases are clear. There is no pleural effusion. Liver spleen pancreas appear normal. There are clips from cholecystectomy. Bile ducts are not dilated . There is no adrenal mass. Kidneys show satisfactory contrast opacification. There is no hydronephrosi s. Ureters are not dilated. There is no retroperitoneal adenopathy. Appendix appears normal. I see no intestinal wall thickening. There are no dilated loops. Bladder distends smoothly. There is no sign of a pelvic mass. Uterus is anteverted. There is a small cortical cyst on the anterior left kidney. There is ventral hernia that contains some omental fat. This measures approximately 2 cm. IMPRESSION: SMALL UPPER ABDOMINAL VENTRAL HERNIA CONTAINS FAT. THIS IS STABLE COMPARED TO OLD EXAM. NO ACUTE ABNO RMALITY SEEN. SMALL STABLE LEFT RENAL CORTICAL CYST
[2016-11-18 01:19] VITALS: BP 165/80; PULSE 73; RESP 16; TEMP 97.8
== END 2016-11-18 02:04 | disposition home or self-care (01) ==
LOC: EC 20:33
DX: R10.32 Left lower quadrant pain (principal); N28.1 Cyst of kidney, acquired; K43.9 Ventral hernia without obstruction or gangrene; I10 Essential (primary) hypertension; F41.9 Anxiety disorder, unspecified; E11.9 Type 2 diabetes mellitus without complications; Z96.41 Presence of insulin pump (external) (internal); Z79.82 Long term (current) use of aspirin; Z79.899 Other long term (current) drug therapy; Z88.2 Allergy status to sulfonamides; Z88.5 Allergy status to narcotic agent; Z80.0 Family history of malignant neoplasm of digestive organs; Z83.79 Family history of other diseases of the digestive system; Z90.49 Acquired absence of other specified parts of digestive tract
CPT/HCPCS: 99284 ×2; 96374 ×2; 96375 ×4; 96361 ×2; 36415; 80053; 82150; 83690; 85025; 85610; 85730; 81001; 87086; 74177; J1200; J2765; J1885; Q9967; C9113

== ENCOUNTER 2016-12-08 19:28 | Observation (INO) | payer MEDICAID, MEDICARE ==
[2016-12-08] MEDS ORDERED: NITROGLYCERIN OINT 1 INCH/GM PACKET TOPICAL STA (19:53)
[2016-12-08] MEDS ORDERED: ASPIRIN 81 MG PO STA (19:53)
--- NOTE | 2016-12-08 19:56 | ED ---
General Adult HPI - General Source: patient, family, RN notes reviewed Mode of arrival: ambulatory Limitations: no limitations <Jose Jain - Last Filed: 12/08/16 21:08> <Franco Mae - Last Filed: 01/31/17 07:09> - General Chief complaint: Chest Pain Stated complaint: Chest Pain Time Seen by Provider: 12/08/16 19:30 - History of Present Illness Initial comments: This is a 61-year-old female with a past history significant for high blood pressure high cholesterol and diabetes. Patient states she's not compliant with her medications at all. Patient comes in today because at 6:30 today started having severe chest pain radiated into her neck and arm she was short of breath diaphoretic and nauseated. Patient states that lasted for about 5 minutes at its most severe and settled down on and another 5 minutes. Patient states currently she still feels a little bit of chest discomfort. Patient has no fever chills or cough. Patient has no abdominal pain patient denies any vomiting or diarrhea. Patient denies any dysuria hematuria urinary frequency. Patient denies any smoking history. (Jose Jain) - Related Data Home Medications Medication Instructions Recorded Confirmed rOPINIRole HCL [Requip] 3 mg PO HS 06/24/13 12/08/16 Losartan/Hydrochlorothiazide 1 tab PO DAILY 08/06/15 12/08/16 [Hyzaar 100-12.5 Tablet] Insulin Aspart (For Pump) [NovoLOG 0.01 unit SQ-PUMP CONTINUOUS 04/07/16 (For Pump)] Atorvastatin [Lipitor] 10 mg PO HS 12/08/16 12/08/16 Ibuprofen [Motrin] 600 mg PO Q6HR PRN 12/08/16 12/08/16 Previous Rx's Medication Instructions Recorded Aspirin EC [Ecotrin Low Dose] 81 mg PO DAILY #30 tablet. 12/09/16 Metoprolol Tartrate [Lopressor] 12.5 mg PO BID #60 tab 12/09/16 Allergies Allergy/AdvReac Type Severity Reaction Status Date / Time codeine Allergy Itching Verified 12/08/16 19:54 morphine Allergy Rash/Hives Verified 12/08/16 19:54 Sulfa (Sulfonamide Allergy Rash/Hives Verified 12/08/16 19:54 Antibiotics) Review of Systems ROS Other: All systems not noted in ROS Statement are negative. <Jose Jain - Last Filed: 12/08/16 21:08> ROS Other: All systems not noted in ROS Statement are negative. <Franco Mae - Last Filed: 01/31/17 07:09> ROS Statement: Those systems with pertinent positive or pertinent negative responses have been documented in the HPI. Past Medical History Past Medical History: CVA/TIA, Diabetes Mellitus, Hyperlipidemia, Hypertension Additional Past Medical History / Comment(s): uti(ecoli)15, tia, migraines, kidney stones, dm-insulin pump. History of Any Multi-Drug Resistant Organisms: None Reported Past Surgical History: Cholecystectomy Additional Past Surgical History / Comment(s): colonoscopy, pain clinic procedures(cervical blocks). Past Anesthesia/Blood Transfusion Reactions: No Reported Reaction Past Psychological History: Anxiety Smoking Status: Never smoker Past Alcohol Use History: None Reported Past Drug Use History: None Reported - Past Family History Father Family Medical History: Cancer, CVA/TIA, Diabetes Mellitus, Hypertension Additional Family Medical History / Comment(s): colon cancer Mother Family Medical History: Cancer, Hypertension Additional Family Medical History / Comment(s): skin ca, gastric bypass. on mothers side of family hx of strokes <Jose Jain - Last Filed: 12/08/16 21:08> General Exam Limitations: no limitations <Jose Jain - Last Filed: 12/08/16 21:08> <Franco Mae - Last Filed: 01/31/17 07:09> - General Exam Comments Initial Comments: GENERAL: Patient is well-developed and well-nourished. Patient is nontoxic and well- hydrated and is in mild distress. ENT: Neck is soft and supple. No significant lymphadenopathy is noted. Oropharynx is clear. Moist mucous membranes. Neck has full range of motion without eliciting any pain. EYES: The sclera were anicteric and conjunctiva were pink and moist. Extraocular movements were intact and pupils were equal round and reactive to light. Eyelids were unremarkable. PULMONARY: Unlabored respirations. Good breath sounds bilaterally. No audible rales rhonchi or wheezing was noted. CARDIOVASCULAR: There is a regular rate and rhythm without any murmurs gallops or rubs. ABDOMEN: Soft and nontender with normal bowel sounds. No palpable organomegaly was noted. There is no palpable pulsatile mass. SKIN: Skin is clear with no lesions or rashes and otherwise unremarkable. NEUROLOGIC: Patient is alert and oriented x3. Cranial nerves II through XII are grossly intact. Motor and sensory are also intact. Normal speech, volume and content. Symmetrical smile. MUSCULOSKELETAL: Normal extremities with adequate strength and full range of motion. No lower extremity swelling or edema. No calf tenderness. LYMPHATICS: No significant lymphadenopathy is noted PSYCHIATRIC: Normal psychiatric evaluation. (Jose Jain) Vital Signs 12/08/16 12/08/16 12/08/16 19:31 20:31 22:26 Temperature 98 F Pulse Rate 128 H 105 H 110 H Pulse Rate [ Bilateral Radial] Respiratory 18 16 20 Rate Blood Pressure 172/80 160/84 146/77 Blood Pressure [Left Arm] O2 Sat by Pulse 96 96 96 Oximetry 12/08/16 12/09/16 12/09/16 23:17 00:22 01:22 Temperature Pulse Rate 104 H 99 Pulse Rate [ 96 Bilateral Radial] Respiratory 16 16 16 Rate Blood Pressure 165/79 136/72 Blood Pressure [Left Arm] O2 Sat by Pulse 99 94 L Oximetry 12/09/16 12/09/16 12/09/16 02:07 04:00 07:54 Temperature 98.8 F 98.6 F Pulse Rate Pulse Rate [ 101 H 99 104 H Bilateral Radial] Respiratory 16 16 18 Rate Blood Pressure Blood Pressure 127/77 165/85 [Left Arm] O2 Sat by Pulse 94 L 95 Oximetry 12/09/16 12/09/16 08:00 12:00 Temperature Pulse Rate Pulse Rate [ 104 H 104 H Bilateral Radial] Respiratory 18 18 Rate Blood Pressure Blood Pressure [Left Arm] O2 Sat by Pulse Oximetry Medical Decision Making - Lab Data Result diagrams: 12/08/16 19:47 12/08/16 19:47 <Jose Jain - Last Filed: 12/08/16 21:08> - Lab Data Result diagrams: 12/08/16 19:47 12/08/16 19:47 <Franco Mae - Last Filed: 01/31/17 07:09> - Medical Decision Making EKG shows sinus tachycardia at [address] interval 254 QRS is 80 QT interval 302 QTC is 435 per patient's EKG shows no ST segment elevation or depression or T wave normalities are noted. Dr. Abad will be taking over the care of this patient at 9 PM (Jose Jain) - Lab Data Lab Results 12/08/16 12/08/16 12/08/16 Range/Units 19:47 19:47 19:47 WBC 10.4 (3.8-10.6) k/uL RBC 4.97 (3.80-5.40) m/uL Hgb 14.7 (11.4-16.0) gm/dL Hct 45.3 (34.0-46.0) % MCV 91.2 (80.0-100.0) fL MCH 29.6 (25.0-35.0) pg MCHC 32.5 (31.0-37.0) g/dL RDW 14.1 (11.5-15.5) % Plt Count 310 (150-450) k/uL Neutrophils % 77 % Lymphocytes % 15 % Monocytes % 5 % Eosinophils % 2 % Basophils % 0 % Neutrophils # 8.1 H (1.3-7.7) k/uL Lymphocytes # 1.6 (1.0-4.8) k/uL Monocytes # 0.5 (0-1.0) k/uL Eosinophils # 0.2 (0-0.7) k/uL Basophils # 0.0 (0-0.2) k/uL PT 9.4 (9.0-12.0) sec INR 0.9 (<1.2) APTT 24.0 (22.0-30.0) sec D-Dimer 0.61 H (<0.60) mg/L FEU Sodium 138 (137-145) mmol/L Potassium 4.5 (3.5-5.1) mmol/L Chloride 102 (98-107) mmol/L Carbon Dioxide 23 (22-30) mmol/L Anion Gap 13 mmol/L BUN 22 H (7-17) mg/dL Creatinine 0.70 (0.52-1.04) mg/dL Est GFR (MDRD) Af Amer >60 (>60 ml/min/1.73 sqM) Est GFR (MDRD) Non-Af >60 (>60 ml/min/1.73 sqM) Glucose 391 H (74-99) mg/dL Calcium 9.8 (8.4-10.2) mg/dL Magnesium 1.6 (1.6-2.3) mg/dL Total Bilirubin 0.3 (0.2-1.3) mg/dL AST 20 (14-36) U/L ALT 54 H (9-52) U/L Alkaline Phosphatase 100 (38-126) U/L Total Creatine Kinase (30-135) U/L CK-MB (CK-2) (0.0-2.4) ng/mL CK-MB (CK-2) Rel Index Troponin I (0.000-0.034) ng/mL NT-Pro-B Natriuret Pep pg/mL Total Protein 7.4 (6.3-8.2) g/dL Albumin 4.4 (3.5-5.0) g/dL Urine Opiates Screen (NotDetected) Ur Oxycodone Screen (NotDetected) Urine Methadone Screen (NotDetected) Ur Propoxyphene Screen (NotDetected) Ur Barbiturates Screen (NotDetected) U Tricyclic Antidepress (NotDetected) Ur Phencyclidine Scrn (NotDetected) Ur Amphetamines Screen (NotDetected) U Methamphetamines Scrn (NotDetected) U Benzodiazepines Scrn (NotDetected) Urine Cocaine Screen (NotDetected) U Marijuana (THC) Screen (NotDetected) 12/08/16 12/08/16 12/08/16 Range/Units 19:47 19:47 20:28 WBC (3.8-10.6) k/uL RBC (3.80-5.40) m/uL Hgb (11.4-16.0) gm/dL Hct (34.0-46.0) % MCV (80.0-100.0) fL MCH (25.0-35.0) pg MCHC (31.0-37.0) g/dL RDW (11.5-15.5) % Plt Count (150-450) k/uL Neutrophils % % Lymphocytes % % Monocytes % % Eosinophils % % Basophils % % Neutrophils # (1.3-7.7) k/uL Lymphocytes # (1.0-4.8) k/uL Monocytes # (0-1.0) k/uL Eosinophils # (0-0.7) k/uL Basophils # (0-0.2) k/uL PT (9.0-12.0) sec INR (<1.2) APTT (22.0-30.0) sec D-Dimer (<0.60) mg/L FEU Sodium (137-145) mmol/L Potassium (3.5-5.1) mmol/L Chloride (98-107) mmol/L Carbon Dioxide (22-30) mmol/L Anion Gap mmol/L BUN (7-17) mg/dL Creatinine (0.52-1.04) mg/dL Est GFR (MDRD) Af Amer (>60 ml/min/1.73 sqM) Est GFR (MDRD) Non-Af (>60 ml/min/1.73 sqM) Glucose (74-99) mg/dL Calcium (8.4-10.2) mg/dL Magnesium (1.6-2.3) mg/dL Total Bilirubin (0.2-1.3) mg/dL AST (14-36) U/L ALT (9-52) U/L Alkaline Phosphatase (38-126) U/L Total Creatine Kinase (30-135) U/L CK-MB (CK-2) (0.0-2.4) ng/mL CK-MB (CK-2) Rel Index Troponin I 0.012 (0.000-0.034) ng/mL NT-Pro-B Natriuret Pep 30 pg/mL Total Protein (6.3-8.2) g/dL Albumin (3.5-5.0) g/dL Urine Opiates Screen Not Detected (NotDetected) Ur Oxycodone Screen Not Detected (NotDetected) Urine Methadone Screen Not Detected (NotDetected) Ur Propoxyphene Screen Not Detected (NotDetected) Ur Barbiturates Screen Not Detected (NotDetected) U Tricyclic Antidepress Not Detected (NotDetected) Ur Phencyclidine Scrn Not Detected (NotDetected) Ur Amphetamines Screen Not Detected (NotDetected) U Methamphetamines Scrn Not Detected (NotDetected) U Benzodiazepines Scrn Detected H (NotDetected) Urine Cocaine Screen Not Detected (NotDetected) U Marijuana (THC) Screen Not Detected (NotDetected) 12/08/16 Range/Units 22:25 WBC (3.8-10.6) k/uL RBC (3.80-5.40) m/uL Hgb (11.4-16.0) gm/dL Hct (34.0-46.0) % MCV (80.0-100.0) fL MCH (25.0-35.0) pg MCHC (31.0-37.0) g/dL RDW (11.5-15.5) % Plt Count (150-450) k/uL Neutrophils % % Lymphocytes % % Monocytes % % Eosinophils % % Basophils % % Neutrophils # (1.3-7.7) k/uL Lymphocytes # (1.0-4.8) k/uL Monocytes # (0-1.0) k/uL Eosinophils # (0-0.7) k/uL Basophils # (0-0.2) k/uL PT (9.0-12.0) sec INR (<1.2) APTT (22.0-30.0) sec D-Dimer (<0.60) mg/L FEU Sodium (137-145) mmol/L Potassium (3.5-5.1) mmol/L Chloride (98-107) mmol/L Carbon Dioxide (22-30) mmol/L Anion Gap mmol/L BUN (7-17) mg/dL Creatinine (0.52-1.04) mg/dL Est GFR (MDRD) Af Amer (>60 ml/min/1.73 sqM) Est GFR (MDRD) Non-Af (>60 ml/min/1.73 sqM) Glucose (74-99) mg/dL Calcium (8.4-10.2) mg/dL Magnesium (1.6-2.3) mg/dL Total Bilirubin (0.2-1.3) mg/dL AST (14-36) U/L ALT (9-52) U/L Alkaline Phosphatase (38-126) U/L Total Creatine Kinase 61 (30-135) U/L CK-MB (CK-2) 0.9 (0.0-2.4) ng/mL CK-MB (CK-2) Rel Index 1.5 Troponin I (0.000-0.034) ng/mL NT-Pro-B Natriuret Pep pg/mL Total Protein (6.3-8.2) g/dL Albumin (3.5-5.0) g/dL Urine Opiates Screen (NotDetected) Ur Oxycodone Screen (NotDetected) Urine Methadone Screen (NotDetected) Ur Propoxyphene Screen (NotDetected) Ur Barbiturates Screen (NotDetected) U Tricyclic Antidepress (NotDetected) Ur Phencyclidine Scrn (NotDetected) Ur Amphetamines Screen (NotDetected) U Methamphetamines Scrn (NotDetected) U Benzodiazepines Scrn (NotDetected) Urine Cocaine Screen (NotDetected) U Marijuana (THC) Screen (NotDetected) Disposition <Jose Jain - Last Filed: 12/08/16 21:08> <Franco Mae - Last Filed: 01/31/17 07:09> Clinical Impression: Chest pain, Hyperglycemia due to type 2 diabetes mellitus, Tachycardia Disposition: ADMITTED IP TO THIS HOSP Condition: Fair
[2016-12-08 20:29] LABS: Basophils % (A) 0 %; CH 29.8; CHCM 32.8; Eosinophils # (A) 0.2 k/uL (0-0.7); Eosinophils % (A) 2 %; HCT 45.3 % (34.0-46.0); HDW 2.34; HGB 14.7 gm/dL (11.4-16.0); Luc # (Auto) 0.08; Luc % (Auto) 1; Lymphocytes # (A) 1.6 k/uL (1.0-4.8); Lymphocytes % (A) 15 %; MCH 29.6 pg (25.0-35.0); MCHC 32.5 g/dL (31.0-37.0); MCV 91.2 fL (80.0-100.0); Mean Platelet Volume 7.7; Monocytes # (A) 0.5 k/uL (0-1.0); Monocytes % (A) 5 %; Neutrophils # (A) 8.1 k/uL (1.3-7.7); Neutrophils % (A) 77 %; RBC 4.97 m/uL (3.80-5.40); RDW 14.1 % (11.5-15.5); WBC 10.4 k/uL (3.8-10.6); WBC (Perox) 10.34
[2016-12-08 20:43] LABS: INR 0.9 (<1.2); Prothrombin Time 9.4 sec (9.0-12.0)
[2016-12-08 20:46] LABS: ALT 54 U/L (9-52); AST 20 U/L (14-36); Alkaline Phosphatase 100 U/L (38-126); Anion Gap 13 mmol/L; Blood Urea Nitrogen 22 mg/dL (7-17); Calcium 9.8 mg/dL (8.4-10.2); Carbon Dioxide 23 mmol/L (22-30); Chloride 102 mmol/L (98-107); Glucose 391 mg/dL (74-99); Magnesium 1.6 mg/dL (1.6-2.3); Non-African American GFR(MDRD) >60 (>60 ml/min/1.73 sqM); Potassium 4.5 mmol/L (3.5-5.1); Sodium 138 mmol/L (137-145); Total Bilirubin 0.3 mg/dL (0.2-1.3); Total Protein 7.4 g/dL (6.3-8.2)
--- NOTE | 2016-12-08 20:53 | XR ---
EXAMINATION TYPE: XR chest 2V DATE OF EXAM: 12/08/2016 COMPARISON: 04/05/2016 HISTORY: Chest pain TECHNIQUE: Frontal and lateral views of the chest are obtained. FINDINGS: Heart and mediastinum are normal. Lungs are clear of consolidation. There is no pleural ef fusion. Bony thorax is intact. There are chest leads. IMPRESSION: No active cardiopulmonary disease. Suboptimal inspiration. Inspiration is worse than las t exam.
[2016-12-08] MEDS ORDERED: RX INFO: IV CONTRAST WAS GIVEN 1 EACH MISC MISCELLANE PRN (21:07)
--- NOTE | 2016-12-08 22:05 | CT ---
EXAMINATION TYPE: CT chest angio for PE DATE OF EXAM: 12/08/2016 COMPARISON: NONE HISTORY: Patient complains of chest pain. CT DLP: 251.3 mGycm Automated exposure control for dose reduction was used. CONTRAST: CT Chest for pulmonary embolism performed with with IV Contrast, patient injected with 100 mL of Omni paque 350. FINDINGS: Lungs are clear of consolidation. There is mild subsegmental atelectasis at the left lung base. There is no mediastinal adenopathy. There is no evidence of aortic aneurysm or dissection. There is n o pericardial effusion. I see no filling defects in the pulmonary arteries. There are no hilar masses. There is no pleural ef fusion. There is spurring in the thoracic spine. IMPRESSION: No evidence of pulmonary embolism. There is probably mild cardiomegaly.
[2016-12-08 22:48] LABS: Creatine Kinase MB 0.9 ng/mL (0.0-2.4)
[2016-12-08] MEDS: MORPHINE SULFATE 10 MG/ML SYRINGE IV STA ×2 (23:27→23:34)
[2016-12-08] MEDS ORDERED: Insulin Aspart (For Pump) 100 UNIT/ML VIAL SQ-PUMP SCH (23:45)
[2016-12-08] MEDS ORDERED: NITROGLYCERIN SL TABS 0.4 MG TAB SUBLINGUAL PRN (23:48)
[2016-12-09 00:49] LABS: Glucose,Whole Blood 382 mg/dL (75-99)
[2016-12-09 01:11] VITALS: BMI 32.5
[2016-12-09 01:57] LABS: Creatine Kinase 47 U/L (30-135)
[2016-12-09 02:11] LABS: Troponin I <0.012 ng/mL (0.000-0.034)
[2016-12-09 02:14] LABS: Creatine Kinase MB 0.7 ng/mL (0.0-2.4)
[2016-12-09 06:32] LABS: Glucose,Whole Blood 225 mg/dL (75-99)
[2016-12-09 07:39] LABS: Cholesterol 197 mg/dL (<200); HDL Cholesterol 56 mg/dL (40-60)
[2016-12-09 07:42] LABS: Creatine Kinase 46 U/L (30-135)
[2016-12-09] MEDS ORDERED: ONDANSETRON 4 MG/2 ML VIAL IVP PRN (07:52)
[2016-12-09] MEDS ORDERED: ACETAMINOPHEN TAB 325 MG TAB PO PRN (07:52)
[2016-12-09 07:54] LABS: Creatine Kinase MB 0.7 ng/mL (0.0-2.4); Troponin I <0.012 ng/mL (0.000-0.034)
[2016-12-09 07:55] VITALS: BP 165/85; PULSE 104; RESP 18; TEMP 98.6
[2016-12-09] MEDS ORDERED: LOSARTAN 50 MG TAB PO SCH (09:00)
[2016-12-09] MEDS ORDERED: ASPIRIN 325 MG TAB PO SCH (09:00)
[2016-12-09] MEDS ORDERED: METOPROLOL TARTRATE 12.5 MG TAB PO SCH (09:00)
[2016-12-09] MEDS ORDERED: HYDROCHLOROTHIAZIDE 12.5 MG CAP PO SCH (09:00)
[2016-12-09] MEDS ORDERED: REGADENOSON 0.4 MG/5 ML SYRINGE IV ONE (09:13)
[2016-12-09] MEDS ORDERED: AMINOPHYLLINE 500 MG/20 ML VIAL IV PRN (09:13)
--- NOTE | 2016-12-09 09:46 | P.HPIM ---
History of Present Illness H&P Date: 12/09/16 61-year-old female who presented to the emergency room on 12/08/2016 with a chief complaint of chest pain. She stated the chest pain was in the middle of her chest and radiated down her arm and into her neck. Associated symptoms were shortness of breath, diaphoresis, and nausea. The patient is a history of hypertension, diabetes mellitus type 2 with an insulin pump, hyperlipidemia, and CVA/TIA. In the emergency room the patient had an EKG completed which showed sinus tachycardia. A chest x-ray was completed which was unremarkable and did not show any acute cardiopulmonary process. CT of the chest was completed which was negative for pulmonary embolism but did show mild cardiomegaly. Troponins were negative 3. White count was 10.4, hemoglobin 14.7, sodium 138, potassium 4.5, magnesium 1.6. Her blood pressure in the emergency room is 127/77. Her blood pressure this morning is slightly elevated at 165/85. She remains slightly tachycardic with a heart rate between 101 and 104. Her blood sugars were in the high 300s yesterday, but the patient states she had her insulin pump turned off while she was in the emergency room undergoing testing. Her insulin pump has since been turned back and her blood sugar this morning has improved and is down to 225. She's maintaining an oxygen saturation greater than 92% on room air. She is afebrile. She denies any chest pain or shortness of breath at this time. Denies nausea or vomiting. Denies dizziness or lightheadedness. She states she does have a mild headache which she attributes to the nitroglycerin. The patient was offered medication but patient declined. Review of Systems Those systems with pertinent positive or pertinent negative responses have been documented in the HPI Past Medical History Past Medical History: CVA/TIA, Diabetes Mellitus, Hyperlipidemia, Hypertension Additional Past Medical History / Comment(s): uti(ecoli)415, tia, migraines, kidney stones, dm-insulin pump. History of Any Multi-Drug Resistant Organisms: None Reported Past Surgical History: Cholecystectomy Additional Past Surgical History / Comment(s): colonoscopy, pain clinic procedures(cervical blocks). Past Anesthesia/Blood Transfusion Reactions: No Reported Reaction Past Psychological History: Anxiety Smoking Status: Never smoker Past Alcohol Use History: None Reported Past Drug Use History: None Reported - Past Family History Father Family Medical History: Cancer, CVA/TIA, Diabetes Mellitus, Hypertension Additional Family Medical History / Comment(s): colon cancer Mother Family Medical History: Cancer, Hypertension Additional Family Medical History / Comment(s): skin ca, gastric bypass. on mothers side of family hx of strokes Medications and Allergies Home Medications Medication Instructions Recorded Confirmed Type rOPINIRole HCL [Requip] 3 mg PO HS 06/24/13 12/08/16 History Losartan/Hydrochlorothiazide 1 tab PO DAILY 08/06/15 12/08/16 History [Hyzaar 100-12.5 Tablet] Insulin Aspart (For Pump) [NovoLOG 0.01 unit SQ-PUMP CONTINUOUS 04/07/16 History (For Pump)] Atorvastatin [Lipitor] 10 mg PO HS 12/08/16 12/08/16 History Ibuprofen [Motrin] 600 mg PO Q6HR PRN 12/08/16 12/08/16 History Aspirin EC [Ecotrin Low Dose] 81 mg PO DAILY #30 tablet. 12/09/16 Rx Metoprolol Tartrate [Lopressor] 12.5 mg PO BID #60 tab 12/09/16 Rx Allergies Allergy/AdvReac Type Severity Reaction Status Date / Time codeine Allergy Itching Verified 12/08/16 19:54 morphine Allergy Rash/Hives Verified 12/08/16 19:54 Sulfa (Sulfonamide Allergy Rash/Hives Verified 12/08/16 19:54 Antibiotics) Physical Exam Vitals: Vital Signs Temp Pulse Pulse Resp BP BP Pulse Ox 12/09/16 08:00 104 H 18 12/09/16 07:54 98.6 F 104 H 18 165/85 95 12/09/16 04:00 99 16 12/09/16 02:07 98.8 F 101 H 16 127/77 94 L 12/09/16 01:22 96 16 12/09/16 00:22 99 16 136/72 94 L 12/08/16 23:17 104 H 16 165/79 99 12/08/16 22:26 110 H 20 146/77 96 12/08/16 20:31 105 H 16 160/84 96 12/08/16 19:31 98 F 128 H 18 172/80 96 Intake and Output 12/08/16 12/09/16 12/09/16 22:59 06:59 14:59 Other: Voiding Method Toilet # Voids 2 Weight 70.76 kg 70.76 kg GENERAL: Alert and oriented. Appears in no acute distress. Pleasant. RESPIRATORY: Lungs clear bilaterally. No use of accessory muscles. Patient maintaining oxygen saturation greater than 92%. CARDIOVASCULAR: S1 and S2 noted. No murmurs auscultated. No JVD noted. EXTREMITIES: No edema noted. Palpable pedal pulses +2. ABDOMEN: No distention noted. Abdomen soft and round. Normal active bowel sounds auscultated 4 quadrants. No pain or tenderness noted upon palpation. Results CBC & Chem 7: 12/08/16 19:47 12/08/16 19:47 Labs: Abnormal Lab Results - Last 24 Hours (Table) 12/08/16 12/08/16 12/08/16 Range/Units 19:47 19:47 19:47 Neutrophils # 8.1 H (1.3-7.7) k/uL D-Dimer 0.61 H (<0.60) mg/L FEU BUN 22 H (7-17) mg/dL Glucose 391 H (74-99) mg/dL POC Glucose (mg/dL) (75-99) mg/dL ALT 54 H (9-52) U/L LDL Cholesterol, Calc (0-99) mg/dL U Benzodiazepines Scrn (NotDetected) 12/08/16 12/09/16 12/09/16 Range/Units 20:28 00:44 06:30 Neutrophils # (1.3-7.7) k/uL D-Dimer (<0.60) mg/L FEU BUN (7-17) mg/dL Glucose (74-99) mg/dL POC Glucose (mg/dL) 382 H 225 H (75-99) mg/dL ALT (9-52) U/L LDL Cholesterol, Calc (0-99) mg/dL U Benzodiazepines Scrn Detected H (NotDetected) 12/09/16 Range/Units 07:01 Neutrophils # (1.3-7.7) k/uL D-Dimer (<0.60) mg/L FEU BUN (7-17) mg/dL Glucose (74-99) mg/dL POC Glucose (mg/dL) (75-99) mg/dL ALT (9-52) U/L LDL Cholesterol, Calc 115 H (0-99) mg/dL U Benzodiazepines Scrn (NotDetected) Thrombosis Risk Factor Assmnt - Choose All That Apply Each Factor Represents 1 point: Age 41-60 years, Obesity (BMI >25) Thrombosis Risk Factor Assessment Total Risk Factor Score: 2 Thrombosis Risk Factor Assessment Level: Low Risk Assessment and Plan Plan: ASSESSMENT: -Chest pain, present on admission, troponins negative 3 -Tachycardia, present on admission, thyroid panel pending -Diabetes mellitus, type II, utilizing insulin pump, hemoglobin A1c pending -Essential hypertension -Hyperlipidemia PLAN: -Cardiology on consult. Appreciate recommendations and input -Patient scheduled for Lexiscan today -Maintain nothing by mouth pressure assessed today -Replace magnesium -Await results of thyroid panel -Resume home meds as appropriate -Monitor labs -GI prophylaxis: Pepcid 20 mg by mouth twice a day -DVT prophylaxis: Heparin 5000 units subcu every 8 hours -Monitor vital signs and address as appropriate -Capillary blood glucose Accu-Cheks before meals and at bedtime -Patient can continue to use her insulin pump and adjust insulin accordingly -Further recommendations to follow The above impression and plan of care have been discussed and directed by signing physician. Lanette Levin, nurse practitioner, acting as scribe for signing physician.
--- NOTE | 2016-12-09 11:38 | P.CRDCN ---
History of Present Illness Consult date: 12/09/16 History of present illness: This is a 61-year-old female patient with past medical history significant hypertension, hyperlipidemia, diabetes mellitus and previous CVA. 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 She follows with Dr. Robledo as an outpatient. She admits that she is noncompliant with her medications and her blood pressure is consistently uncontrolled. We have been asked to see the patient for complaints of midsternal chest pain last night while she was getting ready for [employer]ental [employer]. She states the pain was very sharp and heavy feeling in nature. It actually made her drop to her knees. the pain radiated into her neck and left arm. She got diaphoretic, nausea and vomiting. This episode persisted for 5 minutes and seemed to resolve on its own. EKG reveals sinus mechanism with tachycardic response, heart rate 125, with criteria for LVH. Repeat this morning reveals controlled rate. Chest xray negative for acute cardiopulmonary process. CTA negative for PE. Cardiac enzymes negative x3, Hgb 14.7, platelets 310, P5hwriv 0.61, potassium 4.5, magnesium 1.6, BUN 22, Cr 0.7, blood sugars have been elevated. Blood pressure 165/85 with heart rate 104. Current cardiac medications include losartan/hctz 100/12.5 and lipitor 10 mg daily. She has never had a stress test that she can recall. Most recent echo performed 07/2015 reveals preserved LV function with EF 60-65% with moderate LVH, mild TR and RV mildly enlarged. She is chest pain free at the time of my exam. Review of Systems CONSTITUTIONAL: Denies fever. Denies chills. EYES: Denies blurred vision. Denies vision changes. Denies eye pain. EARS, NOSE, MOUTH & THROAT: Denies headache. Denies sore throat. Denies ear pain. CARDIOVASCULAR: Complains of one episode of chest pain and shortness of breath, resolved. Denies orthopnea. Denies PND. Denies palpitations. RESPIRATORY: Denies cough. GASTROINTESTINAL: Denies abdominal pain. Denies diarrhea. Denies constipation. Complains of one episode of nausea and vomiting, resolved. MUSCULOSKELETAL: Denies myalgias. INTEGUMENTARY: Denies pruitis. Denies rash. NEUROLOGIC: Denies numbness. Denies tingling. Denies weakness. PSYCHIATRIC: Denies anxiety. Denies depression. ENDOCRINE: Denies fatigue. Denies weight change. Denies polydipsia. Denies polyurina. GENITOURINARY: Denies burning, hematuria or urgency with micturation. HEMATOLOGIC: Denies history of anemia. Denies bleeding. Past Medical History Past Medical History: CVA/TIA, Diabetes Mellitus, Hyperlipidemia, Hypertension Additional Past Medical History / Comment(s): uti(ecoli)4-15, tia, migraines, kidney stones, dm-insulin pump. History of Any Multi-Drug Resistant Organisms: None Reported Past Surgical History: Cholecystectomy Additional Past Surgical History / Comment(s): colonoscopy, pain clinic procedures(cervical blocks). Past Anesthesia/Blood Transfusion Reactions: No Reported Reaction Past Psychological History: Anxiety Smoking Status: Never smoker Past Alcohol Use History: None Reported Past Drug Use History: None Reported - Past Family History Father Family Medical History: Cancer, CVA/TIA, Diabetes Mellitus, Hypertension Additional Family Medical History / Comment(s): colon cancer Mother Family Medical History: Cancer, Hypertension Additional Family Medical History / Comment(s): skin ca, gastric bypass. on mothers side of family hx of strokes Medications and Allergies Home Medications Medication Instructions Recorded Confirmed Type rOPINIRole HCL [Requip] 3 mg PO HS 06/24/13 12/08/16 History Losartan/Hydrochlorothiazide 1 tab PO DAILY 08/06/15 12/08/16 History [Hyzaar 100-12.5 Tablet] Insulin Aspart (For Pump) [NovoLOG 0.01 unit SQ-PUMP CONTINUOUS 04/07/16 History (For Pump)] Atorvastatin [Lipitor] 10 mg PO HS 12/08/16 12/08/16 History Ibuprofen [Motrin] 600 mg PO Q6HR PRN 12/08/16 12/08/16 History Allergies Allergy/AdvReac Type Severity Reaction Status Date / Time codeine Allergy Itching Verified 12/08/16 19:54 morphine Allergy Rash/Hives Verified 12/08/16 19:54 Sulfa (Sulfonamide Allergy Rash/Hives Verified 12/08/16 19:54 Antibiotics) Physical Exam Vitals: Vital Signs Temp Pulse Pulse Resp BP BP Pulse Ox 12/09/16 08:00 104 H 18 12/09/16 07:54 98.6 F 104 H 18 165/85 95 10/26/17 04:00 99 16 12/09/16 02:07 98.8 F 101 H 16 127/77 94 L 12/09/16 01:22 96 16 12/09/16 00:22 99 16 136/72 94 L 12/08/16 23:17 104 H 16 165/79 99 12/08/16 22:26 110 H 20 146/77 96 12/08/16 20:31 105 H 16 160/84 96 12/08/16 19:31 98 F 128 H 18 172/80 96 Intake and Output 12/08/16 12/09/16 12/09/16 22:59 06:59 14:59 Other: Voiding Method Toilet # Voids 2 Weight 70.76 kg 70.76 kg GENERAL: This is a 61-year-old female in no apparent distress at the time of my examination. HEENT: Head is atraumatic, normocephalic. Pupils are equal, round. Sclerae anicteric. Conjunctivae are clear. Mucous membranes of the mouth are moist. Neck is supple. There is no jugular venous distention. No carotid bruit is heard. LUNGS: Clear to auscultation no wheezes, rales or rhonchi. No chest wall tenderness is noted on palpation or with deep breathing. HEART: Regular rate and rhythm without murmurs, rubs or gallops. S1 and S2 heard. ABDOMEN: Soft, nontender. Bowel sounds are heard. No organomegaly noted. EXTREMITIES: 2+ peripheral pulses with no evidence of peripheral edema and no calf tenderness noted. NEUROLOGIC: Patient is awake, alert and oriented x3. Results 12/08/16 19:47 12/08/16 19:47 Cardiac Enzymes 12/08/16 12/08/16 12/08/16 Range/Units 19:47 19:47 22:25 AST 20 (14-36) U/L CK-MB (CK-2) 0.9 (0.0-2.4) ng/mL Troponin I 0.012 (0.000-0.034) ng/mL 12/09/16 12/09/16 Range/Units 01:18 07:01 AST (14-36) U/L CK-MB (CK-2) 0.7 0.7 (0.0-2.4) ng/mL Troponin I <0.012 <0.012 (0.000-0.034) ng/mL Coagulation 12/08/16 Range/Units 19:47 PT 9.4 (9.0-12.0) sec APTT 24.0 (22.0-30.0) sec Lipids 12/09/16 Range/Units 07:01 Triglycerides 130 (<150) mg/dL Cholesterol 197 (<200) mg/dL HDL Cholesterol 56 (40-60) mg/dL CBC 12/08/16 Range/Units 19:47 WBC 10.4 (3.8-10.6) k/uL RBC 4.97 (3.80-5.40) m/uL Hgb 14.7 (11.4-16.0) gm/dL Hct 45.3 (34.0-46.0) % Plt Count 310 (150-450) k/uL Comprehensive Metabolic Panel 12/08/16 Range/Units 19:47 Sodium 138 (137-145) mmol/L Potassium 4.5 (3.5-5.1) mmol/L Chloride 102 (98-107) mmol/L Carbon Dioxide 23 (22-30) mmol/L BUN 22 H (7-17) mg/dL Creatinine 0.70 (0.52-1.04) mg/dL Glucose 391 H (74-99) mg/dL Calcium 9.8 (8.4-10.2) mg/dL AST 20 (14-36) U/L ALT 54 H (9-52) U/L Alkaline Phosphatase 100 (38-126) U/L Total Protein 7.4 (6.3-8.2) g/dL Albumin 4.4 (3.5-5.0) g/dL Current Medications Generic Name Dose Route Start Last Admin Trade Name Freq PRN Reason Stop Dose Admin Acetaminophen 650 mg 12/09/16 07:52 Tylenol Tab PO Q6HR PRN Fever and/ or Pain Aminophylline 100 mg 12/09/16 09:13 Aminophylline IV ONCE PRN Patient Response Aspirin 325 mg 12/09/16 09:00 Aspirin PO DAILY [facility] Atorvastatin Calcium 10 mg 12/09/16 21:00 Lipitor PO HS [facility] Famotidine 20 mg 12/09/16 21:00 Pepcid PO BID [facility] Heparin Sodium (Porcine) 5,000 unit 12/09/16 16:00 Heparin SQ Q8HR [facility] Hydrochlorothiazide 12.5 mg 12/09/16 09:00 Hydrodiuril PO DAILY [facility] Magnesium Sulfate/Dextrose 1 100 mls @ 100 mls/hr 12/09/16 10:00 gm/ IV Solution IVPB 12/09/16 11:59 Q1H [facility] Insulin Aspart 0.01 unit 12/08/16 23:45 Novolog (For Pump) SQ-PUMP CONTINUOUS [facility] Losartan Potassium 100 mg 12/09/16 09:00 Cozaar PO DAILY [facility] Metoprolol Tartrate 12.5 mg 12/09/16 09:00 Lopressor PO BID [facility] Miscellaneous Information 1 each 12/08/16 21:07 12/08/16 23:09 Rx Info: Iv Contrast Was Given MISCELLANE 12/10/16 21:08 1 each DAILY PRN Administration Per Protocol Nitroglycerin 0.4 mg 12/08/16 23:48 Nitrostat SUBLINGUAL Q5M PRN Chest Pain Ondansetron HCl 4 mg 12/09/16 07:52 Zofran IVP Q6HR PRN Nausea And Vomiting Ropinirole HCl 3 mg 12/09/16 21:00 Requip PO HS [facility] Intake and Output 12/08/16 12/09/16 12/09/16 22:59 06:59 14:59 Other: Voiding Method Toilet # Voids 2 Weight 70.76 kg 70.76 kg 12/08/16 19:47 12/08/16 19:47 Assessment and Plan Assessment: ASSESSMENT 1. Chest pain, atypical 2. Hypertension, uncontrolled 3. Hyperlipidemia 4. Obesity PLAN Obtain 2-D echocardiogram and Doppler study to assess cardiac structure and function. We will order a Lexiscan stress test. Check TSH level. Add metoprolol 12.5 mg by mouth BID to her daily regimen. Further recommendations will be based upon findings of these exams. Nurse Practitioner note has been reviewed, I agree with a documented findings and plan of care. Patient was seen and examined.
[2016-12-09 12:13] LABS: Glucose,Whole Blood 175 mg/dL (75-99)
[2016-12-09] MEDS: MAGNESIUM SULFATE-D5W PMX 1 GM in DEXTROSE/WATER 1 100ML.BAG IVPB SCH ×2 (12:18→13:42)
--- NOTE | 2016-12-09 12:26 | NM ---
EXAMINATION TYPE: NM stress lexiscan cardiolite DATE OF EXAM: 12/09/2016 COMPARISON: CT chest from yesterday. HISTORY: History of hypertension, diabetes, hypercholesteremia, and prior strokes presents with chest pain and difficulty in breathing. TECHNIQUE: After the intravenous administration of 10.6 mCi Tc 99m Sestamibi - Cardiolite resting SP ECT images acquired 50 minutes post injection. The patient received 0.4mg Lexiscan, 29.2 mCi Tc 99m Sestamibi - Stress images obtained [address] injection FINDINGS: There is fixed defect involving the inferolateral left ventricular wall on stress and rest images in which area of old infarct cannot be excluded. There is no convincing evidence for reversible ischemia . Gated analysis shows normal wall motion with an estimated left ventricular ejection fraction of 50 -60 %. IMPRESSION: No convincing scintigraphic evidence for reversible ischemia.
[2016-12-09] MEDS ORDERED: INSULIN PUMP BASAL RATES 1 EACH MISC MISCELLANE PRN (13:22)
[2016-12-09] MEDS ORDERED: INSULIN LISPRO (humaLOG) 300 UNIT/3 ML VIAL SQ PRN (13:22)
[2016-12-09] MEDS ORDERED: INSPUCOR MISCELLANE PRN (13:22)
[2016-12-09] MEDS ORDERED: INSULIN PUMP ACTIVE INSULIN 1 EACH MISC MISCELLANE PRN (13:22)
[2016-12-09] MEDS ORDERED: INSULIN PUMP TARGET GLUCOSE 1 EACH MISC MISCELLANE PRN (13:22)
--- NOTE | 2016-12-09 13:48 | P.DS ---
Providers Date of admission: 12/08/16 23:52 Expected date of discharge: 12/09/16 Attending physician: Harshil Robledo Consults: 12/08/16 23:48 Consult Physician Routine Consulting Provider: Cyn Perez Consult Reason/Comments: chest pain Do you want consulting provider notified?: Yes Primary care physician: Harshil [facility] Course: 61-year-old female who presented to the emergency room on 12/08/2016 with a chief complaint of chest pain. She stated the chest pain was in the middle of her chest and radiated down her arm and into her neck. Associated symptoms were shortness of breath, diaphoresis, and nausea. The patient is a history of hypertension, diabetes mellitus type 2 with an insulin pump, hyperlipidemia, and CVA/TIA. In the emergency room the patient had an EKG completed which showed sinus tachycardia. A chest x-ray was completed which was unremarkable and did not show any acute cardiopulmonary process. CT of the chest was completed which was negative for pulmonary embolism but did show mild cardiomegaly. Troponins were negative 3. White count was 10.4, hemoglobin 14.7, sodium 138, potassium 4.5, magnesium 1.6. Her blood pressure in the emergency room is 127/77. Her blood pressure this morning is slightly elevated at 165/85. She remains slightly tachycardic with a heart rate between 101 and 104. Her blood sugars were in the high 300s yesterday, but the patient states she had her insulin pump turned off while she was in the emergency room undergoing testing. Her insulin pump has since been turned back and her blood sugar this morning has improved and is down to 225. She's maintaining an oxygen saturation greater than 92% on room air. She is afebrile. She denies any chest pain or shortness of breath at this time. Denies nausea or vomiting. Denies dizziness or lightheadedness. She states she does have a mild headache which she attributes to the nitroglycerin. The patient was offered medication but patient declined. The patient underwent a Lexiscan stress test which revealed fixed defect involving the inferolateral left ventricular wall on stress and rest images in which area of old infarct cannot be excluded. There was no evidence for current reversible ischemia. Her ejection fraction was estimated to be between 50 and 60%. Thyroid panel indicates TSH of 1.240 and free T4 of 1.15. The patient is cleared for discharge from a cardiology standpoint per nurse practitioner, Bella Salmeron. The patient is deemed stable for discharge per Dr. Robledo and is to follow up on an outpatient basis. DISCHARGE DIAGNOSIS: -Chest pain, present on admission, troponins negative 3, Lexiscan stress test negative -Tachycardia, present on admission, thyroid panel within normal limits -Diabetes mellitus, type II, utilizing insulin pump, hemoglobin A1c pending -Essential hypertension -Hyperlipidemia The above impression and plan of care have been discussed and directed by signing physician. Lanette Levin, nurse practitioner, acting as scribe for signing physician. Plan - Discharge Summary New Discharge Prescriptions: New Aspirin EC [Ecotrin Low Dose] 81 mg PO DAILY #30 tablet. Metoprolol Tartrate [Lopressor] 12.5 mg PO BID #60 tab Continue rOPINIRole HCL [Requip] 3 mg PO HS Losartan/Hydrochlorothiazide [Hyzaar 100-12.5 Tablet] 1 tab PO DAILY Insulin Aspart (For Pump) [NovoLOG (For Pump)] 0.01 unit SQ-PUMP CONTINUOUS Ibuprofen [Motrin] 600 mg PO Q6HR PRN PRN Reason: Pain Atorvastatin [Lipitor] 10 mg PO HS Discharge Medication List rOPINIRole HCL [Requip] 3 mg PO HS 06/24/13 [History] Losartan/Hydrochlorothiazide [Hyzaar 100-12.5 Tablet] 1 tab PO DAILY 08/06/15 [ History] Insulin Aspart (For Pump) [NovoLOG (For Pump)] 0.01 unit SQ-PUMP CONTINUOUS [History] Atorvastatin [Lipitor] 10 mg PO HS 12/08/16 [History] Ibuprofen [Motrin] 600 mg PO Q6HR PRN 12/08/16 [History] Aspirin EC [Ecotrin Low Dose] 81 mg PO DAILY #30 tablet. 12/09/16 [Rx] Metoprolol Tartrate [Lopressor] 12.5 mg PO BID #60 tab 12/09/16 [Rx] Follow up Appointment(s)/Referral(s): Harshil Robledo DO [Primary Care Provider] - 1-2 days Pablo Olson MD [STAFF PHYSICIAN] - 1 Week Discharge Disposition: HOME SELF-CARE
--- NOTE | 2016-12-09 14:26 | EST ---
EXERCISE STRESS DATE OF SERVICE: 12/09/2016 AGE: 61 SEX: F HT: 4' 10" WT: 156 lbs. PROTOCOL: Lexiscan Cardiolite Stress Test HEART RATE REST: 89 BLOOD PRESSURE REST: 162/92 MAXIMUM HEART RATE ACHIEVED: 110 MAXIMUM BLOOD PRESSURE: 167/92 85% MPHR: 137 100% MPHR: 161 INDICATIONS: Chest pain. CLINICAL INFORMATION: Pretesting physical examination showed a heart rate of 89, pressure is 160/92 mmHg. Baseline EKG shows sinus mechanism; 0.4 mg of Lexiscan was given. The patient obtained Lexiscan per protocol. Max heart rate was 110 beats per minute, maximum pressure was 167/92 mmHg. Clinically, the patient did not have any symptoms of chest pain or discomfort but the EKG showed about [address]-segment changes. CONCLUSION: 1. There is nondiagnostic electrocardiogram stress testing in response to Lexiscan. 2. Please follow up on the Cardiolite portion on a separate report. MMODL / IJN: [id number] /
--- NOTE | 2016-12-09 15:53 | ECHOF ---
Referral Reason:chest pain MEASUREMENTS -------- HEIGHT: 129.5 cm WEIGHT: 70.8 kg BP: 165/85 IVSd: 1.4 cm (0.6 - 1.1) LVIDd: 3.3 cm (3.9 - 5.3) LVPWd: 1.4 cm (0.6 - 1.1) IVSs: 1.6 cm LVIDs: 2.1 cm LVPWs: 1.9 cm IVSd: 2.9 cm (0.6 - 1.1) Ao Diam: 3.5 cm (2.0 - 3.7) AV Cusp: 2.0 cm (1.5 - 2.6) LA Diam: 3.1 cm (2.7 - 3.8) MV EXCURSION: 13.883 mm (> 18.000) MV EF SLOPE: 117 mm/s (70 - 150) EPSS: 0.6 cm MV E Jonathon: 0.82 m/s MV DecT: 169 ms MV A Jonathon: 1.10 m/s MV E/A Ratio: 0.75 RAP: 5.00 mmHg RVSP: 25.07 mmHg FINDINGS -------- Sinus rhythm. This was a technically good study. The left ventricular size is normal. There is moderate concentric left ventricular hypertrophy. O verall left ventricular systolic function is normal with, an EF between 55 - 60 %. The right ventricle is normal in size and function. The left atrium is normal in size. The right atrium is normal in size. The aortic valve is trileaflet and appears structurally normal. There is trace mitral regurgitation. Trace tricuspid regurgitation present. The right ventricular systolic pressure, as measured by Dopp ler, is 25.07mmHg. Pulmonic valve appears structurally normal. The aortic root size is normal. The pericardium is normal. CONCLUSIONS -------- 1. Sinus rhythm. 2. This was a technically good study. 3. The left ventricular size is normal. 4. There is moderate concentric left ventricular hypertrophy. 5. Overall left ventricular systolic function is normal with, an EF between 55 - 60 %. 6. The right ventricle is normal in size and function. 7. The left atrium is normal in size. 8. The right atrium is normal in size. 9. The aortic valve is trileaflet and appears structurally normal. 10. There is trace mitral regurgitation. 11. Trace tricuspid regurgitation present. 12. The right ventricular systolic pressure, as measured by Doppler, is 25.07mmHg. 13. Pulmonic valve appears structurally normal. 14. The aortic root size is normal. 15. The pericardium is normal. AGILE COACH: Kindra Tyler RDCS
[2016-12-09] MEDS ORDERED: HEPARIN SODIUM,PORCINE 5,000 UNIT/ML 1 ML VIAL SQ SCH (16:00)
[2016-12-09] MEDS ORDERED: INSULIN PUMP MEAL BOLUS 1 UNIT MISC MISCELLANE SCH (17:30)
[2016-12-09] MEDS ORDERED: ATORVASTATIN 10 MG TAB PO SCH (21:00)
[2016-12-09] MEDS ORDERED: FAMOTIDINE 20 MG TAB PO SCH (21:00)
== END 2016-12-09 15:23 | disposition home or self-care (01) ==
LOC: EC 19:28 → 3OBS 23:52
PROVIDERS: ADMIT Family Medicine; ATTEND Family Medicine
DX: R07.89 Other chest pain (principal); R06.02 Shortness of breath; R61 Generalized hyperhidrosis; R51 Headache; E11.9 Type 2 diabetes mellitus without complications; R00.0 Tachycardia, unspecified; R11.2 Nausea with vomiting, unspecified; I11.9 Hypertensive heart disease without heart failure; E66.9 Obesity, unspecified; Z68.32 Body mass index [BMI] 32.0-32.9, adult; E78.00 Pure hypercholesterolemia, unspecified; Z91.14 Patient's other noncompliance with medication regimen; G43.909 Migraine, unspecified, not intractable, without status migrainosus; Z87.442 Personal history of urinary calculi; F41.9 Anxiety disorder, unspecified; Z96.41 Presence of insulin pump (external) (internal); Z86.73 Personal history of transient ischemic attack (TIA), and cerebral infarction without residual deficits; Z80.0 Family history of malignant neoplasm of digestive organs; Z88.5 Allergy status to narcotic agent; Z88.2 Allergy status to sulfonamides; Z79.899 Other long term (current) drug therapy; Z79.4 Long term (current) use of insulin; Z79.82 Long term (current) use of aspirin
CPT/HCPCS: 99285; 96365; 96366; 36415; 93005; 93017; 93306; 85379; 84439; 83880; 80061; 80053; 84443; 82550 ×2; 82553 ×2; 83735; 84484 ×2; 85025; 85610; 85730; 80306; 71020; 71275; 78452; G0378 ×2; A9500; Q9967; J3475; J2785

== ENCOUNTER → 2017-08-18 | Outpatient (CLI) | payer MEDICARE ==
[2017-08-18 14:35] LABS: Basophils % (A) 0 %; Eosinophils # (A) 0.2 k/uL (0-0.7); Eosinophils % (A) 2 %; HCT 37.5 % (34.0-46.0); HGB 12.5 gm/dL (11.4-16.0); Lymphocytes # (A) 1.6 k/uL (1.0-4.8); Lymphocytes % (A) 24 %; MCH 29.5 pg (25.0-35.0); MCHC 33.3 g/dL (31.0-37.0); MCV 88.6 fL (80.0-100.0); Monocytes # (A) 0.3 k/uL (0-1.0); Monocytes % (A) 5 %; Neutrophils # (A) 4.5 k/uL (1.3-7.7); Neutrophils % (A) 67 %; Platelet Count 255 k/uL (150-450); RBC 4.24 m/uL (3.80-5.40); RDW 12.7 % (11.5-15.5); WBC 6.7 k/uL (3.8-10.6)
[2017-08-18 14:49] LABS: Potassium 3.8 mmol/L (3.5-5.1)
[2017-08-18 14:50] LABS: Blood Urea Nitrogen 18 mg/dL (7-17)
== END | disposition home or self-care (01) ==
LOC: LABPAT 13:31
PROVIDERS: ATTEND Surgery
DX: Z01.812 Encounter for preprocedural laboratory examination (principal)
CPT/HCPCS: 36415; 82565; 84132; 84520; 85025

== ENCOUNTER 2017-08-22 08:13 | Day surgery (SDC) | payer MEDICAID, MEDICARE ==
[2017-08-16 10:05] VITALS: BMI 33.4
[~2017-08-22 08:13] MED LIST: LACTATED RINGERS 1,000 ML IV SCH
[2017-08-22 08:54] VITALS: RESP 18; TEMP 98.6
[2017-08-22] MEDS ORDERED: PROPOFOL 10 MG/ML 50 ML VIAL IV ONE (09:06)
[2017-08-22] MEDS ORDERED: LIDOCAINE 1% INJ 10MG/ML (20 ML MDV) ONE (09:06)
[2017-08-22 09:09] LABS: Glucose,Whole Blood 182 mg/dL (75-99)
--- NOTE | 2017-08-22 09:15 | P.GSHP ---
History of Present Illness H&P Date: 08/22/17 Chief Complaint: GERD This is a 62-year-old female referred from Dr. Harshil Geller. Patient rents today for EGD. She's had issues with GERD. Past Medical History Past Medical History: CVA/TIA, Diabetes Mellitus, Hyperlipidemia, Hypertension Additional Past Medical History / Comment(s): TIA 2011/ no residual effects; Hx of migraines,kidney stones, DM-insulin pump. History of Any Multi-Drug Resistant Organisms: None Reported Past Surgical History: Cholecystectomy Additional Past Surgical History / Comment(s): colonoscopy, pain clinic procedures(cervical blocks). Past Anesthesia/Blood Transfusion Reactions: No Reported Reaction Smoking Status: Never smoker - Past Family History Father Family Medical History: Cancer, CVA/TIA, Diabetes Mellitus, Hypertension Additional Family Medical History / Comment(s): colon cancer Mother Family Medical History: Cancer, Hypertension Additional Family Medical History / Comment(s): skin ca, gastric bypass. on mothers side of family hx of strokes Medications and Allergies Home Medications Medication Instructions Recorded Confirmed Type rOPINIRole HCL [Requip] 3 mg PO HS 06/24/13 08/16/17 History Losartan/Hydrochlorothiazide 1 tab PO DAILY 08/06/15 08/16/17 History [Hyzaar 100-12.5 Tablet] Insulin Aspart (For Pump) [NovoLOG 0.01 unit SQ-PUMP CONTINUOUS 04/07/16 History (For Pump)] Atorvastatin [Lipitor] 10 mg PO HS 12/08/16 08/16/17 History Ibuprofen [Motrin] 600 mg PO Q6HR PRN 12/08/16 08/16/17 History Aspirin EC [Ecotrin Low Dose] 81 mg PO DAILY #30 tablet. 12/09/16 08/16/17 Rx Allergies Allergy/AdvReac Type Severity Reaction Status Date / Time codeine Allergy Itching Verified 08/22/17 08:54 morphine Allergy Rash/Hives Verified 08/22/17 08:54 Sulfa (Sulfonamide Allergy Rash/Hives Verified 08/22/17 08:54 Antibiotics) Surgical - Exam Vital Signs Temp Pulse Resp BP Pulse Ox 98.6 F 82 18 135/81 96 08/22/17 08:50 08/22/17 08:50 08/22/17 08:50 08/22/17 08:50 08/22/17 08:50 - General well developed, no distress - Eyes PERRL - ENT normal pinna - Neck no masses - Respiratory normal expansion - Cardiovascular Rhythm: regular - Abdomen Abdomen: soft, non tender Results - Labs Abnormal Lab Results - Last 24 Hours (Table) 08/22/17 Range/Units 09:00 POC Glucose (mg/dL) 182 H (75-99) mg/dL Assessment and Plan Assessment: GERD. We'll perform EGD.
--- NOTE | 2017-08-22 09:24 | P.OP ---
Date of Procedure: 08/22/17 Preoperative Diagnosis: GERD Postoperative Diagnosis: Antral gastritis Mild duodenitis No evidence of hiatal hernia Mild esophagitis Procedure(s) Performed: EGD Anesthesia: MAC Surgeon: Gregory Nix Pathology: other (Antrum, duodenum) Condition: stable Disposition: PACU Description of Procedure: The patient's placed on the endoscopy table in the lateral position. She received IV sedation. The gastroscope placed oropharynx passed in the esophagus and stomach. Scope was then placed through the pylorus. The first and second portion of the duodenum appeared mildly inflamed a biopsies performed. Scope was then brought back the antrum this allowed inflamed a biopsies performed. Scope was unretroflexed and remainder the stomach appeared normal. There is no significant hiatal hernia. The GE junction was at 40 cm. The distal esophagus appeared mildly inflamed a biopsies performed. The proximal esophagus appeared normal.
[2017-08-22 09:28] VITALS: PULSE 81
[2017-08-22 09:37] LABS: Glucose,Whole Blood 186 mg/dL (75-99)
[2017-08-22 10:12] VITALS: BP 131/80
== END 2017-08-22 10:23 | disposition home or self-care (01) ==
LOC: ORWHC2ENDO 08:13
PROVIDERS: ATTEND Surgery
DX: K21.0 Gastro-esophageal reflux disease with esophagitis (principal); K29.80 Duodenitis without bleeding; K31.9 Disease of stomach and duodenum, unspecified; K29.70 Gastritis, unspecified, without bleeding; E11.9 Type 2 diabetes mellitus without complications; E78.5 Hyperlipidemia, unspecified; I10 Essential (primary) hypertension; Z96.41 Presence of insulin pump (external) (internal); Z79.4 Long term (current) use of insulin; Z79.82 Long term (current) use of aspirin; Z79.899 Other long term (current) drug therapy; Z80.0 Family history of malignant neoplasm of digestive organs; Z88.5 Allergy status to narcotic agent; Z88.2 Allergy status to sulfonamides; Z86.73 Personal history of transient ischemic attack (TIA), and cerebral infarction without residual deficits; Z87.442 Personal history of urinary calculi
CPT/HCPCS: 88305; 43239; J2001; J2704

== ENCOUNTER 2017-08-24 11:18 | Day surgery (SDC) | payer MEDICAID, MEDICARE ==
[2017-08-16 10:18] VITALS: BMI 33.4
[~2017-08-24 11:18] MED LIST changes: +DEXAMETHASONE SOD PHOSPHATE 10 MG/ML 1 ML VIAL IV ONE; +HEPARIN SODIUM,PORCINE 5,000 UNIT/ML 1 ML VIAL SQ ONE; +MIDAZOLAM 2 MG/2 ML VIAL IV PRN; +ONDANSETRON 4 MG/2 ML VIAL IVP ONE; +SCOPOLAMINE 1.5MG/72HR PATCH TRANSDERM ONE; +ceFAZolin IN SWFI 2 GM/20 ML SYRINGE IVP ONE; +fentaNYL (PF) 50 MCG/ML 2 ML AMP IV PRN
[2017-08-24] MEDS ORDERED: LIDOCAINE 1% 20 ML VIAL (10MG/ML) FOR IV START INTRADERMA ONE (11:45)
[2017-08-24] MEDS ORDERED: LACTATED RINGERS 1,000 ML IV ONE (11:45)
[2017-08-24 11:54] VITALS: RESP 16
[2017-08-24 12:12] LABS: Glucose,Whole Blood 80 mg/dL (75-99)
--- NOTE | 2017-08-24 13:00 | P.GSHP ---
History of Present Illness H&P Date: 08/24/17 Chief Complaint: Incisional hernia This is a 62-year-old female who presents today for laparoscopic robotic- assisted repair of incisional hernia. Patient has had issues with pain in the mass in her epigastric area. Past Medical History Past Medical History: CVA/TIA, Diabetes Mellitus, Hyperlipidemia, Hypertension Additional Past Medical History / Comment(s): TIA 2011/ no residual effects; Hx of migraines,kidney stones, DM-insulin pump. History of Any Multi-Drug Resistant Organisms: None Reported Past Surgical History: Cholecystectomy Additional Past Surgical History / Comment(s): colonoscopy, pain clinic procedures(cervical blocks). Past Anesthesia/Blood Transfusion Reactions: No Reported Reaction Smoking Status: Never smoker - Past Family History Father Family Medical History: Cancer, CVA/TIA, Diabetes Mellitus, Hypertension Additional Family Medical History / Comment(s): colon cancer Mother Family Medical History: Cancer, Hypertension Additional Family Medical History / Comment(s): skin ca, gastric bypass. on mothers side of family hx of strokes Medications and Allergies Home Medications Medication Instructions Recorded Confirmed Type rOPINIRole HCL [Requip] 3 mg PO HS 06/24/13 08/24/17 History Losartan/Hydrochlorothiazide 1 tab PO DAILY 08/06/15 08/24/17 History [Hyzaar 100-12.5 Tablet] Insulin Aspart (For Pump) [NovoLOG 0.01 unit SQ-PUMP CONTINUOUS 04/07/16 History (For Pump)] Atorvastatin [Lipitor] 10 mg PO HS 12/08/16 08/24/17 History Ibuprofen [Motrin] 600 mg PO Q6HR PRN 12/08/16 08/24/17 History Aspirin EC [Ecotrin Low Dose] 81 mg PO DAILY #30 tablet. 12/09/16 08/24/17 Rx Allergies Allergy/AdvReac Type Severity Reaction Status Date / Time codeine Allergy Itching Verified 08/24/17 11:38 morphine Allergy Rash/Hives Verified 08/24/17 11:38 Sulfa (Sulfonamide Allergy Rash/Hives Verified 08/24/17 11:38 Antibiotics) Surgical - Exam Vital Signs Temp Pulse Resp BP Pulse Ox 99.2 F 86 16 138/72 95 08/24/17 11:52 08/24/17 11:52 08/24/17 11:52 08/24/17 11:52 08/24/17 11:52 - General well developed, no distress - Eyes PERRL - ENT normal pinna - Neck no masses - Respiratory normal expansion - Cardiovascular Rhythm: regular - Abdomen Abdomen: soft Hernia: incisional (Incisional hernia in the epigastric area) Assessment and Plan Assessment: Incisional hernia. We'll perform laparoscopic robotic-assisted repair.
--- NOTE | 2017-08-24 13:03 | P.ONQ ---
Anesthesiology Proc Note - PNB - Peripheral Nerve Block Performed Right Rectus Abdominis Single Time Out Performed: Yes (7902) Procedure Start Time: 12:42 Procedure Stop Time: 12:48 Indication: Acute Post-Operative Pain, Dx/Pain Location (Right Abdomen), Requested by physician Sedation Type: Sedate with meaningful contact maintained Preparation: Sterile Prep Position: Supine Catheter: None Needle Types: On-Q Needle Size: 100mm (4") Needle Gauge: 21 Technique: Ultrasound Injectate: Other (see comment) (30ml 0.25% Ropivacaine) Blood Aspirated: No Pain Paresthesia on Injection Noted: No Resistance on Injection: Normal Events: Uneventful and Well Tolerated
[2017-08-24] MEDS ORDERED: NEOSTIGMINE 1 MG/ML 10 ML VIAL ONE (13:23)
[2017-08-24] MEDS ORDERED: GLYCOPYRROLATE 0.2 MG/ML 2 ML VIAL ONE (13:23)
[2017-08-24] MEDS ORDERED: SUCCINYLCHOLINE CHLORIDE 100 MG/5 ML SYR IV ONE (13:23)
[2017-08-24] MEDS ORDERED: ROPIVACAINE 5 MG/ML 30 ML VIAL ONE (13:23)
[2017-08-24] MEDS ORDERED: PROPOFOL 10 MG/ML 20 ML VIAL IV ONE (13:23)
[2017-08-24] MEDS ORDERED: ROCURONIUM BROMIDE 10 MG/ML 10 ML VIAL IV ONE (13:23)
[2017-08-24] MEDS ORDERED: MIDAZOLAM 2 MG/2 ML VIAL ONE (13:23)
[2017-08-24] MEDS ORDERED: fentaNYL (PF) 50 MCG/ML 2 ML AMP ONE (13:23)
[2017-08-24] MEDS ORDERED: LIDOCAINE 1% INJ 10MG/ML (20 ML MDV) ONE (13:23)
[2017-08-24] MEDS ORDERED: BUPIVACAINE (PF) 0.5% 30 ML VIAL SQ ONE (13:42)
--- NOTE | 2017-08-24 14:15 | P.OP ---
Date of Procedure: 08/24/17 Preoperative Diagnosis: Incarcerated incisional hernia Postoperative Diagnosis: Incarcerated incisional hernia Procedure(s) Performed: Laparoscopic robotic-assisted repair of incarcerated incisional hernia Anesthesia: RICARDO Surgeon: Gregory Nix Estimated Blood Loss (ml): 5 Pathology: none sent Condition: stable Disposition: PACU Description of Procedure: The patient was placed on the operating table in the supine position. He received general anesthesia. His abdomen was prepped and draped usual fashion. Using a 5 mm optical trocar under direct visualization the peritoneal cavity was entered in the left upper quadrant. The abdomen was then insufflated. The laparoscope was placed back into the perineal cavity. Next a 8 mm robotic trocar was placed in the left lower quadrant and a 12 mm robotic trocar was placed in the left lateral position. The original 5 mm trocar was exchanged for a 8 mm robotic trocar. The patient's placed in the left side up position. And the patient was docked to the robot. The incisional hernia was visualized. The omentum was incarcerated within the hernia. Using a cautery the omentum was reduced. Using hook cautery the peritoneum over the incisional hernia was excised. The fascial opening was repaired using 0V LOC suture. Next a piece of 11 cm round ventral light ST mesh was placed into the. Cavity and secured with 2 OV lock suture. The patient was undocked the robot. The needles were retrieved. The fascia of the 12 mm trocar site was closed with 0 Ethibond suture. Skin was closed interrupted 3-0 Monocryl suture. Dermabond dressings was applied. Patient tolerated procedure well and was sent to recovery room stable condition.
[2017-08-24] MEDS: HYDROmorphone 0.5 MG/0.5 ML SYRINGE IVP ONE ×2 (14:34→14:46)
[2017-08-24 14:41] VITALS: TEMP 71.4
[2017-08-24 15:41] LABS: Glucose,Whole Blood 202 mg/dL (75-99)
[2017-08-24 16:36] VITALS: BP 153/80; PULSE 71
== END 2017-08-24 16:51 | disposition home or self-care (01) ==
LOC: OR 11:18
PROVIDERS: ATTEND Surgery
DX: K43.0 Incisional hernia with obstruction, without gangrene (principal); I10 Essential (primary) hypertension; E78.5 Hyperlipidemia, unspecified; E11.9 Type 2 diabetes mellitus without complications; Z79.4 Long term (current) use of insulin; Z96.41 Presence of insulin pump (external) (internal); Z86.73 Personal history of transient ischemic attack (TIA), and cerebral infarction without residual deficits; Z79.82 Long term (current) use of aspirin; Z79.899 Other long term (current) drug therapy; Z88.5 Allergy status to narcotic agent; Z88.2 Allergy status to sulfonamides
CPT/HCPCS: 49655; C1781; J2250; J1644; J1100; J2710; J2405; J2001; J3010; J2795; J0330; J2704; J1170; J0690; 86850; 86900; 86901

== ENCOUNTER 2017-08-26 06:59 | Emergency (ER) | payer MEDICARE ==
[2017-08-26] MEDS ORDERED: ONDANSETRON 4 MG/2 ML VIAL IVP STA (07:27)
[2017-08-26] MEDS ORDERED: SODIUM CHLORIDE 0.9% 2,000 ML IV STA (07:27)
[2017-08-26] MEDS ORDERED: SODIUM CHLORIDE 0.9% 1,000 ML IV STA (07:27)
[2017-08-26] MEDS ORDERED: KETOROLAC 30 MG/ML 1 ML VIAL IVP STA (07:28)
--- NOTE | 2017-08-26 07:31 | ED ---
General Adult HPI - General Chief complaint: Recheck/Abnormal Lab/Rx Stated complaint: post op vomiting Time Seen by Provider: 08/26/17 07:20 Source: patient, family, RN notes reviewed Mode of arrival: wheelchair Limitations: no limitations - History of Present Illness Initial comments: This is a 62-year-old female who just had A hernia repair done 2 days ago who presents with complaints of persistent nausea vomiting lightheadedness and generalized weakness. She states that he will keep any fluids down any medications down. His been persistent since yesterday. She denies any fevers chills sweats or other symptoms at this time. No other modifying factors. She does states she was given codeine which she is ALLERGIC to she's not sure if this may have caused it she also states she is ALLERGIC to morphine she gets itchy from it. - Related Data Home Medications Medication Instructions Recorded Confirmed rOPINIRole HCL [Requip] 3 mg PO HS 06/24/13 08/26/17 Losartan/Hydrochlorothiazide 1 tab PO DAILY 08/06/15 08/26/17 [Hyzaar 100-12.5 Tablet] Ibuprofen [Motrin] 600 mg PO Q6HR PRN 12/08/16 08/26/17 INSULIN LISPRO (For Pump) [humaLOG 0.01 units SQ-PUMP CONTINUOUS 08/26/17 (For Pump)] Previous Rx's Medication Instructions Recorded Aspirin EC [Ecotrin Low Dose] 81 mg PO DAILY #30 tablet. 12/09/16 Docusate [Colace] 100 mg PO BID #20 capsule 08/24/17 HYDROcodone/APAP 7.5-325MG [Brooks 1 tab PO Q4H PRN 3 Days #18 tab 08/24/17 7.5-325] Ondansetron Odt [Zofran Odt] 8 mg PO Q8HR #10 tab 08/26/17 Allergies Allergy/AdvReac Type Severity Reaction Status Date / Time codeine Allergy Itching Verified 08/26/17 07:41 morphine Allergy Rash/Hives Verified 08/26/17 07:41 Sulfa (Sulfonamide Allergy Rash/Hives Verified 08/26/17 07:41 Antibiotics) Review of Systems ROS Statement: Those systems with pertinent positive or pertinent negative responses have been documented in the HPI. ROS Other: All systems not noted in ROS Statement are negative. Past Medical History Past Medical History: CVA/TIA, Diabetes Mellitus, Hyperlipidemia, Hypertension Additional Past Medical History / Comment(s): TIA 2012/ no residual effects; Hx of migraines,kidney stones, DM-insulin pump. History of Any Multi-Drug Resistant Organisms: None Reported Past Surgical History: Cholecystectomy, Hernia Repair Additional Past Surgical History / Comment(s): colonoscopy, pain clinic procedures(cervical blocks). Past Anesthesia/Blood Transfusion Reactions: No Reported Reaction Past Psychological History: Anxiety Smoking Status: Never smoker Past Alcohol Use History: None Reported Past Drug Use History: None Reported - Past Family History Father Family Medical History: Cancer, CVA/TIA, Diabetes Mellitus, Hypertension Additional Family Medical History / Comment(s): colon cancer Mother Family Medical History: Cancer, Hypertension Additional Family Medical History / Comment(s): skin ca, gastric bypass. on mothers side of family hx of strokes General Exam - General Exam Comments Initial Comments: This is a well-developed well-nourished awake alert oriented 3 female Limitations: no limitations General appearance: alert, in no apparent distress Head exam: Present: atraumatic, normocephalic, normal inspection Eye exam: Present: normal appearance, PERRL, EOMI. Absent: scleral icterus, conjunctival injection, periorbital swelling ENT exam: Present: mucous membranes dry Neck exam: Present: normal inspection. Absent: tenderness, meningismus, lymphadenopathy Respiratory exam: Present: normal lung sounds bilaterally. Absent: respiratory distress, wheezes, rales, rhonchi, stridor Cardiovascular Exam: Present: normal rhythm, tachycardia, normal heart sounds. Absent: systolic murmur, diastolic murmur, rubs, gallop, clicks GI/Abdominal exam: Present: soft, normal bowel sounds, other (Examination of the surgical port sites reveal no evidence of dehiscence and adduction erythema discharge localized tenderness as expected.). Absent: distended, tenderness, guarding, rebound, rigid Extremities exam: Present: normal inspection, full ROM, normal capillary refill. Absent: tenderness, pedal edema, joint swelling, calf tenderness Back exam: Present: normal inspection Neurological exam: Present: alert, oriented X3, CN II-XII intact Psychiatric exam: Present: normal affect, normal mood Skin exam: Present: warm, dry, intact, normal color. Absent: rash Course Vital Signs 08/26/17 08/26/17 08/26/17 07:01 07:48 08:34 Temperature 99.7 F H Pulse Rate 127 H 118 H 97 Respiratory 18 22 18 Rate Blood Pressure 159/104 157/86 170/88 O2 Sat by Pulse 89 L 91 L 94 L Oximetry Medical Decision Making - Medical Decision Making I did reexamine the patient several occasions she is feeling much improved her abdomen is soft minimal discomfort. I did discuss the x-ray findings with the patient and her . Patient will go home and try outpatient management. This is not unreasonable this time she was instructed however to come back to the emergency department if she is unable to pass gas or bowel movements or if she has increased abdominal distention or bloating or any other issues. - Lab Data Result diagrams: 08/26/17 07:34 08/26/17 07:34 Lab Results 08/26/17 08/26/17 Range/Units 07:34 07:34 WBC 11.3 H (3.8-10.6) k/uL RBC 5.14 (3.80-5.40) m/uL Hgb 15.1 (11.4-16.0) gm/dL Hct 45.4 (34.0-46.0) % MCV 88.4 (80.0-100.0) fL MCH 29.3 (25.0-35.0) pg MCHC 33.2 (31.0-37.0) g/dL RDW 13.1 (11.5-15.5) % Plt Count 302 (150-450) k/uL Neutrophils % 88 % Lymphocytes % 8 % Monocytes % 3 % Eosinophils % 1 % Basophils % 0 % Neutrophils # 9.9 H (1.3-7.7) k/uL Lymphocytes # 0.9 L (1.0-4.8) k/uL Monocytes # 0.3 (0-1.0) k/uL Eosinophils # 0.1 (0-0.7) k/uL Basophils # 0.0 (0-0.2) k/uL Sodium 139 (137-145) mmol/L Potassium 4.3 (3.5-5.1) mmol/L Chloride 102 (98-107) mmol/L Carbon Dioxide 24 (22-30) mmol/L Anion Gap 13 mmol/L BUN 18 H (7-17) mg/dL Creatinine 0.56 (0.52-1.04) mg/dL Est GFR (CKD-EPI)AfAm >90 (>60 ml/min/1.73 sqM) Est GFR (CKD-EPI)NonAf >90 (>60 ml/min/1.73 sqM) Glucose 237 H (74-99) mg/dL Calcium 10.0 (8.4-10.2) mg/dL Total Bilirubin 0.8 (0.2-1.3) mg/dL AST 49 H (14-36) U/L ALT 70 H (9-52) U/L Alkaline Phosphatase 85 (38-126) U/L Total Protein 7.4 (6.3-8.2) g/dL Albumin 4.6 (3.5-5.0) g/dL Amylase 40 (30-110) U/L Lipase 51 (23-300) U/L - Radiology Data Radiology results: report reviewed (I did review the imaging and report or is evidence of a postop ileus.), image reviewed Disposition Clinical Impression: Ileus, postoperative, Dehydration, Tachycardia, Vomiting Disposition: HOME SELF-CARE Condition: Good Instructions: Dehydration (ED), Ileus (ED), Acute Nausea and Vomiting (ED) Prescriptions: Ondansetron Odt [Zofran Odt] 8 mg PO Q8HR #10 tab Is patient prescribed a controlled substance at d/c from ED?: No Referrals: Harshil Robledo DO [Primary Care Provider] - 1-2 days
[2017-08-26 07:48] LABS: Basophils % (A) 0 %; Eosinophils # (A) 0.1 k/uL (0-0.7); Eosinophils % (A) 1 %; HCT 45.4 % (34.0-46.0); HGB 15.1 gm/dL (11.4-16.0); Lymphocytes # (A) 0.9 k/uL (1.0-4.8); Lymphocytes % (A) 8 %; MCH 29.3 pg (25.0-35.0); MCHC 33.2 g/dL (31.0-37.0); MCV 88.4 fL (80.0-100.0); Mean Platelet Volume 6.7; Monocytes # (A) 0.3 k/uL (0-1.0); Monocytes % (A) 3 %; Neutrophils # (A) 9.9 k/uL (1.3-7.7); Neutrophils % (A) 88 %; Platelet Count 302 k/uL (150-450); RBC 5.14 m/uL (3.80-5.40); RDW 13.1 % (11.5-15.5); WBC 11.3 k/uL (3.8-10.6)
[2017-08-26 07:58] LABS: ALT 70 U/L (9-52); AST 49 U/L (14-36); Albumin 4.6 g/dL (3.5-5.0); Alkaline Phosphatase 85 U/L (38-126); Amylase 40 U/L (30-110); Anion Gap 13 mmol/L; Blood Urea Nitrogen 18 mg/dL (7-17); Carbon Dioxide 24 mmol/L (22-30); Chloride 102 mmol/L (98-107); Glucose 237 mg/dL (74-99); Lipase 51 U/L (23-300); Potassium 4.3 mmol/L (3.5-5.1); Sodium 139 mmol/L (137-145); Total Bilirubin 0.8 mg/dL (0.2-1.3); Total Protein 7.4 g/dL (6.3-8.2)
--- NOTE | 2017-08-26 08:13 | XR ---
EXAMINATION TYPE: XR KUB DATE OF EXAM: 08/26/2017 8:03 AM CLINICAL HISTORY: Recent hernia surgery with nausea, vomiting and abdominal pain. TECHNIQUE: Single upright image of the abdomen is obtained. COMPARISON: None. FINDINGS: There are differential air-fluid levels within multiple loops of dilated small bowel measur ing up to 3.7 cm in caliber. Air is noted within the descending colon and within the rectum. No pneum operitoneum is seen. No suspicious calcifications. Cholecystectomy clips are noted within the right u pper quadrant. Osseous structures are intact. IMPRESSION: Numerous small bowel air-fluid levels may represent postoperative ileus or early partial small bowel obstruction. Air is noted within the descending colon and rectum and therefore postoperat jed ileus is favored. Correlate with most recent bowel movement and clinical symptoms.
[2017-08-26 08:35] VITALS: RESP 18
[2017-08-26 09:43] VITALS: BP 160/86; PULSE 88; TEMP 98.4
== END 2017-08-26 09:56 | disposition home or self-care (01) ==
LOC: EC 06:59
DX: K91.89 Other postprocedural complications and disorders of digestive system (principal); E86.0 Dehydration; R00.0 Tachycardia, unspecified; E11.9 Type 2 diabetes mellitus without complications; I10 Essential (primary) hypertension; Z90.49 Acquired absence of other specified parts of digestive tract; Z98.890 Other specified postprocedural states; Z86.73 Personal history of transient ischemic attack (TIA), and cerebral infarction without residual deficits; Z79.4 Long term (current) use of insulin; Z79.899 Other long term (current) drug therapy; Z88.5 Allergy status to narcotic agent; Z88.2 Allergy status to sulfonamides
CPT/HCPCS: 36415; 80053; 82150; 83690; 85025; 74018; 99284; 96374; 96375; 96361 ×2; J2405; J1885

== ENCOUNTER 2017-08-27 21:39 | Inpatient (IN) | payer MEDICARE ==
[2017-08-27] MEDS ORDERED: KETOROLAC 30 MG/ML 1 ML VIAL IVP STA (22:21)
[2017-08-27] MEDS ORDERED: SODIUM CHLORIDE 0.9% 1,000 ML IV ONE (22:21)
[2017-08-27] MEDS ORDERED: ONDANSETRON 4 MG/2 ML VIAL IVP STA (22:26)
[2017-08-27] MEDS ORDERED: PANTOPRAZOLE 40 MG/10 ML VIAL IVP STA (22:27)
[2017-08-27 22:31] LABS: Basophils % (A) 0 %; Eosinophils # (A) 0.2 k/uL (0-0.7); Eosinophils % (A) 2 %; HCT 40.2 % (34.0-46.0); HGB 13.5 gm/dL (11.4-16.0); Lymphocytes # (A) 1.1 k/uL (1.0-4.8); Lymphocytes % (A) 12 %; MCH 29.8 pg (25.0-35.0); MCHC 33.4 g/dL (31.0-37.0); MCV 89.1 fL (80.0-100.0); Mean Platelet Volume 6.9; Monocytes # (A) 0.4 k/uL (0-1.0); Monocytes % (A) 4 %; Neutrophils # (A) 7.3 k/uL (1.3-7.7); Neutrophils % (A) 80 %; Platelet Count 260 k/uL (150-450); RBC 4.52 m/uL (3.80-5.40); RDW 13.2 % (11.5-15.5); WBC 9.2 k/uL (3.8-10.6)
[2017-08-27 22:40] LABS: ALT 83 U/L (9-52); AST 48 U/L (14-36); Albumin 4.1 g/dL (3.5-5.0); Alkaline Phosphatase 85 U/L (38-126); Amylase 40 U/L (30-110); Anion Gap 9 mmol/L; Blood Urea Nitrogen 15 mg/dL (7-17); Calcium 9.2 mg/dL (8.4-10.2); Carbon Dioxide 26 mmol/L (22-30); Chloride 103 mmol/L (98-107); Glucose 214 mg/dL (74-99); Lipase 50 U/L (23-300); Potassium 4.9 mmol/L (3.5-5.1); Sodium 138 mmol/L (137-145); Total Bilirubin 0.8 mg/dL (0.2-1.3); Total Protein 6.8 g/dL (6.3-8.2)
--- NOTE | 2017-08-27 22:49 | XR ---
EXAMINATION TYPE: XR abdomen 2V DATE OF EXAM: 08/27/2017 COMPARISON: 07/14/2013 HISTORY: Right upper quadrant pain TECHNIQUE: 4 views FINDINGS: There are some small bowel fluid levels. There is no sign of free air. There are clips from cholecystectomy. Fecal pattern is fairly normal. There is linear density at the right lung base cons istent with subsegmental atelectasis. IMPRESSION: Small bowel air consistent with ileus. No free air. New subsegmental atelectasis at the r ight lung base compared to old exam.
--- NOTE | 2017-08-27 23:04 | ED ---
General Adult HPI - General Chief complaint: Abdominal Pain Stated complaint: Abd pain Time Seen by Provider: 08/27/17 22:07 Source: patient, family, RN notes reviewed, old records reviewed Mode of arrival: wheelchair Limitations: no limitations - History of Present Illness Initial comments: Chief complaint history of present illness this is a 62-year-old female who was seen yesterday emergency room. 3 days ago the patient had a right upper quadrant hernia repair. She had a Kocur incision for a cholecystectomy many years ago. This developed no hernia. Since having had the surgery just 3 days ago she had nausea vomiting abdominal pain feels bloated no bowel movements not passing gas. Yesterday she had an x-ray that showed ileus. The patient tried eat today was unable to. Patient has ALLERGIES to codeine and morphine. She did take 1 codeine without apparent adverse reaction other than possibly swelling of the intestine. - Related Data Home Medications Medication Instructions Recorded Confirmed rOPINIRole HCL [Requip] 3 mg PO HS 06/24/13 08/26/17 Losartan/Hydrochlorothiazide 1 tab PO DAILY 08/06/15 08/26/17 [Hyzaar 100-12.5 Tablet] Ibuprofen [Motrin] 600 mg PO Q6HR PRN 12/08/16 08/26/17 INSULIN LISPRO (For Pump) [humaLOG 0.01 units SQ-PUMP CONTINUOUS 08/26/17 (For Pump)] Previous Rx's Medication Instructions Recorded Aspirin EC [Ecotrin Low Dose] 81 mg PO DAILY #30 tablet. 12/09/16 Docusate [Colace] 100 mg PO BID #20 capsule 08/24/17 HYDROcodone/APAP 7.5-325MG [[place] 1 tab PO Q4H PRN 3 Days #18 tab 08/24/17 7.5-325] Ondansetron Odt [Zofran Odt] 8 mg PO Q8HR #10 tab 08/26/17 Allergies Allergy/AdvReac Type Severity Reaction Status Date / Time codeine Allergy Itching Verified 08/27/17 21:47 morphine Allergy Rash/Hives Verified 08/27/17 21:47 Sulfa (Sulfonamide Allergy Rash/Hives Verified 08/27/17 21:47 Antibiotics) Review of Systems ROS Statement: Those systems with pertinent positive or pertinent negative responses have been documented in the HPI. Review of systems no headache or visual acuity changes no chest pain or shortness of breath. The patient has sensation of bloating. Has not passed gas or had a bowel movement since the surgery. Try to eat a little today was unable to. And vomiting up until 2 days ago. All systems reviewed. Past medical problems significant for TIA 7 years ago, insulin-dependent diabetes mellitus, hyperlipidemia and hypertension. Patient's surgeries include cholecystectomy, hernia repair for the same gallbladder surgery many many years ago. Also colonoscopy. Family history father with colon cancer. Sister breast cancer other Sr. had thyroid cancer. Patient has ALLERGIES to codeine, morphine and sulfa. Nonsmoker and nonalcohol use. ROS Other: All systems not noted in ROS Statement are negative. Past Medical History Past Medical History: CVA/TIA, Diabetes Mellitus, Hyperlipidemia, Hypertension Additional Past Medical History / Comment(s): TIA 2012/ no residual effects; Hx of migraines,kidney stones, DM-insulin pump. History of Any Multi-Drug Resistant Organisms: None Reported Past Surgical History: Cholecystectomy, Hernia Repair Additional Past Surgical History / Comment(s): colonoscopy, pain clinic procedures(cervical blocks). Past Anesthesia/Blood Transfusion Reactions: No Reported Reaction Past Psychological History: Anxiety Smoking Status: Never smoker Past Alcohol Use History: None Reported Past Drug Use History: None Reported - Past Family History Father Family Medical History: Cancer, CVA/TIA, Diabetes Mellitus, Hypertension Additional Family Medical History / Comment(s): colon cancer Mother Family Medical History: Cancer, Hypertension Additional Family Medical History / Comment(s): skin ca, gastric bypass. on mothers side of family hx of strokes General Exam - General Exam Comments Initial Comments: General: The patient is awake and alert, here because she continues to have abdominal pain since the surgery for her right upper quadrant hernia repair 3 days ago. Temp 99.6 pulse 114 respiratory rate 20 pulse ox 91% on room air blood pressure 162/82 Eye: Pupils are equal, round and reactive to light, extra-ocular movements are intact ; there is normal conjunctiva bilaterally. No signs of icterus. Ears, nose, mouth and throat: There are moist mucous membranes and no oral lesions. Neck: The neck is supple, there is no tenderness . Cardiovascular: tachycardic heart rate, 114.. No murmur, rub or gallop is appreciated. Respiratory: Lungs are clear to auscultation, respirations are non-labored, breath sounds are equal. No wheezes, stridor, rales, or rhonchi. Gastrointestinal: patient had hernia repair on the right upper quadrant after having had a Kocur incision for cholecystectomy many years ago. Patient had nausea vomiting up until yesterday. No bowel movement or passing gas since the surgery 3 days ago. Tender palpation. Hypoactive bowel sounds. Back: no complaint of back pain. Musculoskeletal: Normal ROM, no tenderness, There is no pedal edema. There is no calf tenderness or swelling. Sensation intact. Neurological: no neuro deficits complained of none noted. Skin: Skin is warm and dry and no rashes or lesions are noted. Psychiatric: Cooperative, Limitations: no limitations Course Vital Signs 08/27/17 21:44 Temperature 99.6 F Pulse Rate 114 H Respiratory 20 Rate Blood Pressure 162/82 O2 Sat by Pulse 91 L Oximetry Medical Decision Making - Medical Decision Making Medical decision making; this is a 62-year-old female here because of abdominal discomfort. patient had a repair hernia beneath her Kocur incision the right upper quadrant 3 days ago. Since then no bowel movements and not passing gas. Abdominal bloating is getting worse. Labs show white count of 9 hemoglobin 13 hematocrit of 40 with a potassium 4.9. The patient's BUN 15 creatinine 0.6 GFR greater than 90. Glucose 214. AST/ ALT mildly elevated.. Amylase lipase within normal limits. x-ray of the abdomen was done which is compared to one done yesterday. Radiologist's findings are there are some small bowel fluid levels. There is no sign of free air. There are clips from cholecystectomy. Fecal pattern is fairly normal. There is linear density at the right lung base consistent with subsegmental atelectasis. Impression small bowel air consistent with ileus. No free air. New subsegmental atelectasis at the right lung base compared to old exam. As read by Dr. Reece The case discussed with Dr. Hameed, on-call for Dr. Weaver. Patient be admitted to her service. Kept nothing by mouth this evening. Rehydration with medications to include Toradol, Protonix. - Lab Data Result diagrams: 08/27/17 22:05 08/27/17 22:05 Lab Results 08/27/17 08/27/17 08/27/17 Range/Units 22:05 22:05 22:45 WBC 9.2 (3.8-10.6) k/uL RBC 4.52 (3.80-5.40) m/uL Hgb 13.5 (11.4-16.0) gm/dL Hct 40.2 (34.0-46.0) % MCV 89.1 (80.0-100.0) fL MCH 29.8 (25.0-35.0) pg MCHC 33.4 (31.0-37.0) g/dL RDW 13.2 (11.5-15.5) % Plt Count 260 (150-450) k/uL Neutrophils % 80 % Lymphocytes % 12 % Monocytes % 4 % Eosinophils % 2 % Basophils % 0 % Neutrophils # 7.3 (1.3-7.7) k/uL Lymphocytes # 1.1 (1.0-4.8) k/uL Monocytes # 0.4 (0-1.0) k/uL Eosinophils # 0.2 (0-0.7) k/uL Basophils # 0.0 (0-0.2) k/uL Sodium 138 (137-145) mmol/L Potassium 4.9 (3.5-5.1) mmol/L Chloride 103 (98-107) mmol/L Carbon Dioxide 26 (22-30) mmol/L Anion Gap 9 mmol/L BUN 15 (7-17) mg/dL Creatinine 0.60 (0.52-1.04) mg/dL Est GFR (CKD-EPI)AfAm >90 (>60 ml/min/1.73 sqM) Est GFR (CKD-EPI)NonAf >90 (>60 ml/min/1.73 sqM) Glucose 214 H (74-99) mg/dL Plasma Lactic Acid [place] 1.0 (0.7-2.0) mmol/L Calcium 9.2 (8.4-10.2) mg/dL Total Bilirubin 0.8 (0.2-1.3) mg/dL AST 48 H (14-36) U/L ALT 83 H (9-52) U/L Alkaline Phosphatase 85 (38-126) U/L Total Protein 6.8 (6.3-8.2) g/dL Albumin 4.1 (3.5-5.0) g/dL Amylase 40 (30-110) U/L Lipase 50 (23-300) U/L Disposition Clinical Impression: Ileus, postoperative Disposition: ADMITTED IP TO THIS HOSP Condition: Fair Is patient prescribed a controlled substance at d/c from ED?: No Referrals: Harshil Robledo DO [Primary Care Provider] - 1-2 days
[2017-08-27] MEDS: SODIUM CHLORIDE 0.9% 1,000 ML IV SCH (23:18)
[2017-08-28] MEDS ORDERED: ONDANSETRON 4 MG/2 ML VIAL IVP PRN (00:12)
[2017-08-28] MEDS ORDERED: KETOROLAC 30 MG/ML 1 ML VIAL IVP PRN (00:12)
[2017-08-28] MEDS ORDERED: NALOXONE 0.4 MG/ML 1 ML VIAL IV PRN (00:12)
[2017-08-28] MEDS ORDERED: SODIUM CHLORIDE 0.9% 1,000 ML IV SCH (00:15)
[2017-08-28 02:31] VITALS: BMI 32.3
[2017-08-28 07:37] LABS: Glucose,Whole Blood 171 mg/dL (75-99)
[2017-08-28 08:50] VITALS: BP 151/82; PULSE 84; RESP 16; TEMP 98.1
[2017-08-28] MEDS: SODIUM CHLORIDE 0.9% 1,000 ML IV SCH (08:55)
[2017-08-28] MEDS ORDERED: PANTOPRAZOLE 40 MG/10 ML VIAL IV SCH (09:00)
[2017-08-28 11:19] LABS: Glucose,Whole Blood 153 mg/dL (75-99)
--- NOTE | 2017-08-28 11:59 | P.GSHP ---
History of Present Illness H&P Date: 08/28/17 CHIEF COMPLAINT: Abdominal distention and postsurgical ileus HISTORY OF PRESENT ILLNESS: The patient is a 62-year-old female who is status post robotic-assisted umbilical hernia repair by Dr. Nix 5 days ago. She reports at home having moderate postsurgical pain as well as increased abdominal distention. She then developed nausea as well as vomiting. She then went to the emergency room within 48 hrs of her surgery. She was then admitted last night for worsening symptoms including dehydration and abdominal pain. Since admission, she has passed moderate flatus. Her nausea is resolved. Her abdominal distention is completely resolved. Her family is at bedside. "I feel much better." She is eager to go home. No reports of fevers or chills. As result patient is deemed stable for discharge. PAST MEDICAL HISTORY: See list. PAST SURGICAL HISTORY: See list. CURRENT MEDICATIONS: See list. ALLERGIES: See list. SOCIAL HISTORY: See list. FAMILY HISTORY: Denies Crohns disease and ulcerative colitis. REVIEW OF ORGAN SYSTEMS: CONSTITUTIONAL: Denies any fever or chills. Denies recent weight loss or weight gain. HEENT: Denies any trouble with vision, hearing or nosebleeds. LYMPHATIC: The patient denies any lumps and bumps around the neck. ENDOCRINE: Denies any thyroid disorders. Has blood sugar glucose intolerance. RESPIRATORY: Denies pneumonia. Denies any troubles with breathing or dyspnea on exertion. CARDIOVASCULAR: No recent chest pain, palpitations, or recent heart attacks. GASTROINTESTINAL: Has heart burn, constipation or bright red blood per rectum. GENITOURINARY: Denies any blood in urine or increased urinary frequency. MUSCULOSKELETAL: Has back pain, stiffness, joint arthritis. NEUROLOGIC: Denies any numbness or tingling along the distal extremities. No seizure disorders or headaches. PSYCHIATRIC: Denies depression or suidical ideation. HEMATOLOGIC: Denies any abnormal bleeding or bruising. SKIN: No recent skin cancer or rash PHYSICAL EXAMINATION: GENERAL: Well developed and in no acute distress. Pleasant. HEENT: No sclera icterus. Extraocular movements grossly intact. Moist buccal mucosa. Head is atraumatic, normocephalic. Hears conversational speech. No nasal drainage. NECK: Supple without lymphadenopathy. No JV distention. CHEST: Non-labored respirations and equal bilateral excursions. CARDIOVASCULAR: Regular rate and rhythm. Palpable 2+ radial pulses. ABDOMEN: Soft, nontender. Nondistended. MUSCULOSKELETAL: No clubbing, cyanosis or edema. NEUROLOGIC: No focal or lateralizing signs. PSYCH: Appropriate affect. Alert and oriented to person, place and time. SKIN: Good skin turgor. Well perfused. LABS: Reviewed STUDIES: Reviewed ASSESSMENT: 1. History of umbilical hernia 2. Postsurgical ileus and abdominal pain 3. Nausea and vomiting 4. Dehydration 5. Constipation PLAN: 1. Patient's symptoms of resolved upon this admission and is stable to go home 2. For pain management, nonsteroidal anti-inflammatories advised with avoidance of narcotics to prevent rebound ileus. 3. She will wear abdominal binder for comfort. 4. Follow-up with Dr. Nix as outpatient. Thank you very much for allowing me to participate in the care of your patient. Past Medical History Past Medical History: CVA/TIA, Diabetes Mellitus, Hyperlipidemia, Hypertension Additional Past Medical History / Comment(s): TIA 2011/ no residual effects; Hx of migraines,kidney stones, DM-insulin pump. Has had insulin pump for 8 years - sees Dr Robledo and Dr Alejandro for diabetes History of Any Multi-Drug Resistant Organisms: None Reported Past Surgical History: Cholecystectomy, Hernia Repair Additional Past Surgical History / Comment(s): colonoscopy, pain clinic procedures(cervical blocks). Past Anesthesia/Blood Transfusion Reactions: No Reported Reaction Past Psychological History: Anxiety Smoking Status: Never smoker Past Alcohol Use History: None Reported Past Drug Use History: None Reported - Past Family History Father Family Medical History: Cancer, CVA/TIA, Diabetes Mellitus, Hypertension Additional Family Medical History / Comment(s): colon cancer Mother Family Medical History: Cancer, Hypertension Additional Family Medical History / Comment(s): skin ca, gastric bypass. on mothers side of family hx of strokes Medications and Allergies Home Medications Medication Instructions Recorded Confirmed Type rOPINIRole HCL [Requip] 3 mg PO HS 06/24/13 08/26/17 History Losartan/Hydrochlorothiazide 1 tab PO DAILY 08/06/15 08/26/17 History [Hyzaar 100-12.5 Tablet] Ibuprofen [Motrin] 600 mg PO Q6HR PRN 12/08/16 08/26/17 History Aspirin EC [Ecotrin Low Dose] 81 mg PO DAILY #30 tablet. 12/09/16 08/26/17 Rx Docusate [Colace] 100 mg PO BID #20 capsule 08/24/17 08/26/17 Rx HYDROcodone/APAP 7.5-325MG [[place] 1 tab PO Q4H PRN 3 Days #18 tab 08/24/1708/26 Rx 7.5-325] INSULIN LISPRO (For Pump) [humaLOG 0.01 units SQ-PUMP CONTINUOUS 08/26/17 History (For Pump)] Ondansetron Odt [Zofran Odt] 8 mg PO Q8HR #10 tab 08/26/17 Rx Allergies Allergy/AdvReac Type Severity Reaction Status Date / Time codeine Allergy Itching Verified 08/27/17 21:47 morphine Allergy Rash/Hives Verified 08/27/17 21:47 Sulfa (Sulfonamide Allergy Rash/Hives Verified 08/27/17 21:47 Antibiotics) Surgical - Exam Vital Signs Temp Pulse Resp BP Pulse Ox 99.6 F 114 H 20 162/82 91 L 08/27/17 21:44 08/27/17 21:44 08/27/17 21:44 08/27/17 21:44 08/27/17 21:44 Results - Labs 08/27/17 22:05 08/27/17 22:05 Abnormal Lab Results - Last 24 Hours (Table) 08/27/17 08/28/17 08/28/17 Range/Units 22:05 07:26 11:16 Glucose 214 H (74-99) mg/dL POC Glucose (mg/dL) 171 H 153 H (75-99) mg/dL AST 48 H (14-36) U/L ALT 83 H (9-52) U/L Diabetes panel 08/27/17 Range/Units 22:05 Sodium 138 (137-145) mmol/L Potassium 4.9 (3.5-5.1) mmol/L Chloride 103 (98-107) mmol/L Carbon Dioxide 26 (22-30) mmol/L BUN 15 (7-17) mg/dL Creatinine 0.60 (0.52-1.04) mg/dL Glucose 214 H (74-99) mg/dL Calcium 9.2 (8.4-10.2) mg/dL AST 48 H (14-36) U/L ALT 83 H (9-52) U/L Alkaline Phosphatase 85 (38-126) U/L Total Protein 6.8 (6.3-8.2) g/dL Albumin 4.1 (3.5-5.0) g/dL Calcium panel 08/27/17 Range/Units 22:05 Calcium 9.2 (8.4-10.2) mg/dL Albumin 4.1 (3.5-5.0) g/dL Pituitary panel 08/27/17 Range/Units 22:05 Sodium 138 (137-145) mmol/L Potassium 4.9 (3.5-5.1) mmol/L Chloride 103 (98-107) mmol/L Carbon Dioxide 26 (22-30) mmol/L BUN 15 (7-17) mg/dL Creatinine 0.60 (0.52-1.04) mg/dL Glucose 214 H (74-99) mg/dL Calcium 9.2 (8.4-10.2) mg/dL Adrenal panel 08/27/17 Range/Units 22:05 Sodium 138 (137-145) mmol/L Potassium 4.9 (3.5-5.1) mmol/L Chloride 103 (98-107) mmol/L Carbon Dioxide 26 (22-30) mmol/L BUN 15 (7-17) mg/dL Creatinine 0.60 (0.52-1.04) mg/dL Glucose 214 H (74-99) mg/dL Calcium 9.2 (8.4-10.2) mg/dL Total Bilirubin 0.8 (0.2-1.3) mg/dL AST 48 H (14-36) U/L ALT 83 H (9-52) U/L Alkaline Phosphatase 85 (38-126) U/L Total Protein 6.8 (6.3-8.2) g/dL Albumin 4.1 (3.5-5.0) g/dL
--- NOTE | 2017-08-28 12:02 | P.DS ---
Providers Date of admission: 08/28/17 00:12 Expected date of discharge: 08/28/17 Attending physician: Danielle Kinsey Primary care physician: Harshil Robledo - Discharge Diagnosis(es) (1) Constipation Current Visit: Yes Status: Acute (2) Umbilical hernia Current Visit: Yes Status: Acute (3) S/P hernia repair Current Visit: Yes Status: Acute (4) Ileus, postoperative Current Visit: Yes Status: Acute (5) Hyperglycemia Current Visit: No Status: Acute (6) Vomiting Current Visit: No Status: Acute Hospital Course: CHIEF COMPLAINT: Abdominal distention and postsurgical ileus HISTORY OF PRESENT ILLNESS: The patient is a 62-year-old female who is status post robotic-assisted umbilical hernia repair by Dr. Nix 5 days ago. She reports at home having moderate postsurgical pain as well as increased abdominal distention. She then developed nausea as well as vomiting. She then went to the emergency room within 48 hrs of her surgery. She was then admitted last night for worsening symptoms including dehydration and abdominal pain. Since admission, she has passed moderate flatus. Her nausea is resolved. Her abdominal distention is completely resolved. Her family is at bedside. "I feel much better." She is eager to go home. No reports of fevers or chills. As result patient is deemed stable for discharge. PAST MEDICAL HISTORY: See list. PAST SURGICAL HISTORY: See list. CURRENT MEDICATIONS: See list. ALLERGIES: See list. SOCIAL HISTORY: See list. FAMILY HISTORY: Denies Crohns disease and ulcerative colitis. REVIEW OF ORGAN SYSTEMS: CONSTITUTIONAL: Denies any fever or chills. Denies recent weight loss or weight gain. HEENT: Denies any trouble with vision, hearing or nosebleeds. LYMPHATIC: The patient denies any lumps and bumps around the neck. ENDOCRINE: Denies any thyroid disorders. Has blood sugar glucose intolerance. RESPIRATORY: Denies pneumonia. Denies any troubles with breathing or dyspnea on exertion. CARDIOVASCULAR: No recent chest pain, palpitations, or recent heart attacks. GASTROINTESTINAL: Has heart burn, constipation or bright red blood per rectum. GENITOURINARY: Denies any blood in urine or increased urinary frequency. MUSCULOSKELETAL: Has back pain, stiffness, joint arthritis. NEUROLOGIC: Denies any numbness or tingling along the distal extremities. No seizure disorders or headaches. PSYCHIATRIC: Denies depression or suidical ideation. HEMATOLOGIC: Denies any abnormal bleeding or bruising. SKIN: No recent skin cancer or rash PHYSICAL EXAMINATION: GENERAL: Well developed and in no acute distress. Pleasant. HEENT: No sclera icterus. Extraocular movements grossly intact. Moist buccal mucosa. Head is atraumatic, normocephalic. Hears conversational speech. No nasal drainage. NECK: Supple without lymphadenopathy. No JV distention. CHEST: Non-labored respirations and equal bilateral excursions. CARDIOVASCULAR: Regular rate and rhythm. Palpable 2+ radial pulses. ABDOMEN: Soft, nontender. Nondistended. MUSCULOSKELETAL: No clubbing, cyanosis or edema. NEUROLOGIC: No focal or lateralizing signs. PSYCH: Appropriate affect. Alert and oriented to person, place and time. SKIN: Good skin turgor. Well perfused. LABS: Reviewed STUDIES: Reviewed ASSESSMENT: 1. History of umbilical hernia 2. Postsurgical ileus and abdominal pain 3. Nausea and vomiting 4. Dehydration 5. Constipation PLAN: 1. Patient's symptoms of resolved upon this admission and is stable to go home 2. For pain management, nonsteroidal anti-inflammatories advised with avoidance of narcotics to prevent rebound ileus. 3. She will wear abdominal binder for comfort. 4. Follow-up with Dr. Nix as outpatient. Thank you very much for allowing me to participate in the care of your patient. Pertinent Studies: Abdominal x-ray consistent with ileus without obstruction. Patient Condition at Discharge: Stable Plan - Discharge Summary Discharge Rx Participant: Yes New Discharge Prescriptions: Continue rOPINIRole HCL [Requip] 3 mg PO HS Losartan/Hydrochlorothiazide [Hyzaar 100-12.5 Tablet] 1 tab PO DAILY Ibuprofen [Motrin] 600 mg PO Q6HR PRN PRN Reason: Pain Aspirin EC [Ecotrin Low Dose] 81 mg PO DAILY #30 tablet. Docusate [Colace] 100 mg PO BID #20 capsule INSULIN LISPRO (For Pump) [humaLOG (For Pump)] 0.01 units SQ-PUMP CONTINUOUS Ondansetron Odt [Zofran ODT] 8 mg PO Q8HR #10 tab Discontinued HYDROcodone/APAP 7.5-325MG [[place] 7.5-325] 1 tab PO Q4H PRN 3 Days #18 tab PRN Reason: Pain Discharge Medication List rOPINIRole HCL [Requip] 3 mg PO HS 06/24/13 [History] Losartan/Hydrochlorothiazide [Hyzaar 100-12.5 Tablet] 1 tab PO DAILY 08/06/15 [ History] Ibuprofen [Motrin] 600 mg PO Q6HR PRN 12/08/16 [History] Aspirin EC [Ecotrin Low Dose] 81 mg PO DAILY #30 tablet.dr 12/09/16 [Rx] Docusate [Colace] 100 mg PO BID #20 capsule 08/24/17 [Rx] INSULIN LISPRO (For Pump) [humaLOG (For Pump)] 0.01 units SQ-PUMP CONTINUOUS [History] Ondansetron Odt [Zofran ODT] 8 mg PO Q8HR #10 tab 08/26/17 [Rx] Follow up Appointment(s)/Referral(s): Harshil Robledo DO [Primary Care Provider] - 1-2 days Gregory Nix MD [STAFF PHYSICIAN] - 1 Week Patient Instructions/Handouts: Ileus (DC) Activity/Diet/Wound Care/Special Instructions: Liquid diet for the next 2 days. Avoid narcotics for pain. Wear abdominal binder. Discharge Disposition: HOME SELF-CARE
== END 2017-08-28 12:38 | disposition home or self-care (01) | DRG 390 ==
LOC: EC 21:39 → 3SUR 08-28 00:12
PROVIDERS: ADMIT Surgery Plastic and Reconstructive Surgery; ATTEND Surgery Plastic and Reconstructive Surgery
DX: K56.7 Ileus, unspecified (principal); E11.65 Type 2 diabetes mellitus with hyperglycemia; E78.5 Hyperlipidemia, unspecified; E86.0 Dehydration; F41.9 Anxiety disorder, unspecified; I10 Essential (primary) hypertension; Z79.4 Long term (current) use of insulin; Z80.0 Family history of malignant neoplasm of digestive organs; Z82.3 Family history of stroke; Z82.49 Family history of ischemic heart disease and other diseases of the circulatory system; Z83.3 Family history of diabetes mellitus; Z86.73 Personal history of transient ischemic attack (TIA), and cerebral infarction without residual deficits; Z90.49 Acquired absence of other specified parts of digestive tract; Z96.41 Presence of insulin pump (external) (internal); Z79.1 Long term (current) use of non-steroidal anti-inflammatories (NSAID); Z79.82 Long term (current) use of aspirin; Z79.891 Long term (current) use of opiate analgesic; Z79.899 Other long term (current) drug therapy; Z88.5 Allergy status to narcotic agent; Z88.2 Allergy status to sulfonamides
CPT/HCPCS: 36415; 74019; 80053; 82150; 83605; 83690; 85025; 96361; 96374; 96375; 99285

== ENCOUNTER → 2020-03-28 | Outpatient (CLI) | payer MEDICARE ==
[2020-03-28 14:36] LABS: African American GFR (CKD) >90 (>60 ml/min/1.73 sqM); Blood Urea Nitrogen 16 mg/dL (7-17); Non-African American GFR(CKD) >90 (>60 ml/min/1.73 sqM)
--- NOTE | 2020-03-28 17:24 | CT ---
EXAMINATION TYPE: CT abdomen pelvis w con DATE OF EXAM: 03/28/2020 COMPARISON: 11/18/2016. HISTORY: Left sided abdominal pain. CT DLP: 1082.2 mGycm Automated exposure control for dose reduction was used. TECHNIQUE: Helical acquisition of images was performed from the lung bases through the pelvis. CONTRAST: Performed with Oral Contrast and with IV Contrast, patient injected with 100ml mL of Isovue 300. FINDINGS: LUNG BASES: No significant abnormality is appreciated. LIVER/GB: No acute abnormality is appreciated. Cholecystectomy is seen. PANCREAS: No significant abnormality is seen. SPLEEN: No significant abnormality is seen. ADRENALS: No significant abnormality is seen. KIDNEYS: 2 mm nonobstructing left renal calculus in the upper pole. No bilateral hydronephrosis or ri ght nephrolithiasis. Few benign-appearing bilateral renal cysts, measuring up to 0.5 cm. FREE AIR: No free air is visualized. RETROPERITONEAL ADENOPATHY: None visualized REPRODUCTIVE ORGANS: No significant abnormality is seen URINARY BLADDER: No significant abnormality is seen. PELVIC ADENOPATHY: None visualized. OSSEOUS STRUCTURES: No significant abnormality is seen. BOWEL: No bowel obstruction, free air or fluid. Small fat-containing left ventral hernia. OTHER: None. IMPRESSION: NO ACUTE ABNORMALITY. SMALL FAT CONTAINING LEFT VENTRAL HERNIA, NEW COMPARED TO 2017 CT. INTERVAL REPAIR OF PREVIOUS VENTRA L HERNIA. INCIDENTAL FINDINGS ABOVE.
== END | disposition home or self-care (01) ==
LOC: RADCTMAIN 13:32
PROVIDERS: ATTEND Family Medicine
DX: K43.9 Ventral hernia without obstruction or gangrene (principal); Z98.890 Other specified postprocedural states
CPT/HCPCS: 82565; 84520; 74177; 36415; Q9967

== ENCOUNTER → 2021-06-19 | Outpatient (CLI) | payer MEDICARE ==
--- NOTE | 2021-06-19 12:09 | XR ---
EXAMINATION TYPE: XR lumbar spine 2 or 3V DATE OF EXAM: 06/19/2021 COMPARISON: None HISTORY: Lumbar radiculopathy TECHNIQUE: 3 view lumbar spine FINDINGS: Subtle scoliosis present with convexity to the right. This can be positional. Disc height a nd vertebral body heights are preserved. Alignment is straightened in the lateral projection. IMPRESSION: 1. No acute osseous abnormality lumbar spine. 2. Mild scoliosis may be present. 3. Consider MRI if additional evaluation would be of benefit.
== END | disposition home or self-care (01) ==
LOC: RADXRMAIN 11:45
PROVIDERS: ATTEND Family Medicine
DX: M54.16 Radiculopathy, lumbar region (principal)
CPT/HCPCS: 72100

== ENCOUNTER 2023-06-06 15:45 | Emergency (ER) | payer MEDICARE ==
--- NOTE | 2023-06-06 16:39 | ED ---
General Adult HPI - General Source: patient, RN notes reviewed Mode of arrival: ambulatory Limitations: no limitations <Lula Varela - Last Filed: 06/06/23 16:37> - History of Present Illness -: days(s) Location: back, abdomen, pelvis Radiation: non-radiation Severity scale (1-10): 7 Quality: sharp Consistency: constant Improves with: none Worsens with: none Associated Symptoms: chest pain, loss of appetite, nausea/vomiting Treatments Prior to Arrival: none <Jose Clemons - Last Filed: 06/15/23 21:56> - General Chief complaint: Recheck/Abnormal Lab/Rx Stated complaint: Back pain, vomitting Time Seen by Provider: 06/06/23 16:00 - History of Present Illness Initial comments: Kalia kulkarni is a 67-year-old female with complaint of back pain, nausea, vomiting and fevers. Patient states that she has been treated for urinary tract infection over the past month with 2 different antibiotics including Keflex and most recently Macrobid last Tuesday. She has a history of kidney stones. (Lula Varela) This is a 67-year-old female to ER for evaluation of back pain nausea vomiting and fevers. Concern for urinary tract infection on recent antibiotics lately with symptoms worsening. Patient also having kidney stone pain (Jose Clemons) - Related Data Home Medications Medication Instructions Recorded Confirmed Empagliflozin [Jardiance] 10 mg PO DAILY 06/06/23 06/06/23 Insulin Degludec [Tresiba 50 units SQ DAILY 06/06/23 06/06/23 Flextouch U-200 Pen] Nitrofurantoin Monohyd/M-Cryst 100 mg PO Q12HR 06/06/23 06/06/23 [Macrobid] Semaglutide [Ozempic] 1.5 mg SQ TH 06/06/23 06/06/23 amLODIPine [Norvasc] 5 mg PO DAILY 06/06/23 06/06/23 busPIRone HCl [Buspar] 10 mg PO BID PRN 06/06/23 06/06/23 rOPINIRole HCL [Requip] 4 mg PO HS 06/06/23 06/06/23 traZODone HCL [Desyrel] 50 mg PO HS PRN 06/06/23 06/06/23 Allergies Allergy/AdvReac Type Severity Reaction Status Date / Time ciprofloxacin [From Cipro] Allergy Rash/Hives Verified 06/06/23 20:19 codeine Allergy Itching Verified 06/06/23 20:19 Sulfa (Sulfonamide Allergy Rash/Hives Verified 06/06/23 20:19 Antibiotics) morphine AdvReac heart Verified 06/06/23 20:19 racing Review of Systems ROS Other: All systems not noted in ROS Statement are negative. <Lula Varela - Last Filed: 06/06/23 16:37> ROS Other: All systems not noted in ROS Statement are negative. <Jose Clemons - Last Filed: 06/15/23 21:56> ROS Statement: Those systems with pertinent positive or pertinent negative responses have been documented in the HPI. Past Medical History Past Medical History: CVA/TIA, Diabetes Mellitus, Hyperlipidemia, Hypertension Additional Past Medical History / Comment(s): TIA 2011/ no residual effects; Hx of migraines,kidney stones, DM-insulin pump. Has had insulin pump for 8 years - sees Dr Robledo and Dr Alejandro for diabetes History of Any Multi-Drug Resistant Organisms: None Reported Past Surgical History: Cholecystectomy, Hernia Repair Additional Past Surgical History / Comment(s): colonoscopy, pain clinic procedures(cervical blocks). Past Anesthesia/Blood Transfusion Reactions: No Reported Reaction Past Psychological History: Anxiety Smoking Status: Never smoker Past Alcohol Use History: None Reported Past Drug Use History: None Reported - Past Family History Father Family Medical History: Cancer, CVA/TIA, Diabetes Mellitus, Hypertension Additional Family Medical History / Comment(s): colon cancer Mother Family Medical History: Cancer, Hypertension Additional Family Medical History / Comment(s): skin ca, gastric bypass. on mothers side of family hx of strokes <Lula Varela - Last Filed: 06/06/23 16:37> General Exam Limitations: no limitations <Lula Varela - Last Filed: 06/06/23 16:37> General appearance: alert, in no apparent distress, anxious Head exam: Present: atraumatic, normocephalic, normal inspection Eye exam: Present: normal appearance, PERRL, EOMI. Absent: scleral icterus, conjunctival injection, periorbital swelling ENT exam: Present: normal exam, mucous membranes moist Neck exam: Present: normal inspection. Absent: tenderness, meningismus, lymphadenopathy Respiratory exam: Present: normal lung sounds bilaterally. Absent: respiratory distress, wheezes, rales, rhonchi, stridor Cardiovascular Exam: Present: regular rate, normal rhythm, normal heart sounds. Absent: systolic murmur, diastolic murmur, rubs, gallop, clicks GI/Abdominal exam: Present: soft, normal bowel sounds. Absent: distended, tenderness, guarding, rebound, rigid Extremities exam: Present: normal inspection, full ROM, normal capillary refill. Absent: tenderness, pedal edema, joint swelling, calf tenderness Back exam: Present: normal inspection Neurological exam: Present: alert, oriented X3, CN II-XII intact Psychiatric exam: Present: normal affect, normal mood Skin exam: Present: warm, dry, intact, normal color. Absent: rash <Jose Clemons - Last Filed: 06/15/23 21:56> - General Exam Comments Initial Comments: Visual Physical Exam Vital signs reviewed General: Well-appearing, nontoxic, no acute distress. Head: Normocephalic, atraumatic Eyes: PERRLA, EOMI ENT: Airway patent Chest: Nonlabored breathing Skin: No visual rash, normal skin tone Neuro: Alert and oriented 3 Musculoskeletal: No gross abnormalities (Stieler,Lula) Course <Jose Clemons - Last Filed: 06/15/23 21:56> Vital Signs 06/06/23 06/06/23 06/06/23 16:12 19:44 20:13 Temperature 101.1 F H 98.6 F 98.6 F Pulse Rate 92 78 Respiratory 20 18 Rate Blood Pressure 178/89 135/79 O2 Sat by Pulse 99 94 L Oximetry - Reevaluation(s) Reevaluation #1: Medical records reviewed (Jose Clemons) Reevaluation #2: Patient symptoms are improved (Jose Clemons) Reevaluation #3: Patient informed of results questions answered (Jose Clemons) Reevaluation #4: Was pt. sent in by a medical professional or institution (, PA, ASSISTANT FLOOR COVERING PRINTER, urgent care, hospital, or assisted...) When possible be specific @ -no Did you speak to anyone other than the patient for history (EMS, parent, family, police, friend...)? What history was obtained from this source @ -no Did you review nursing and triage notes (agree or disagree)? Why? @ -agree Are old charts reviewed (outside hosp., previous admission, EMS record, old EKG, old radiological studies, urgent care reports/EKG's, assisted records)? Repo rt findings @ -yes Differential Diagnosis (chest pain, altered mental status, abdominal pain women, abdominal pain men, vaginal bleeding, weakness, fever, dyspnea, syncope, headache, dizziness, GI bleed, back pain, seizure, CVA, palpatations, mental health, musculoskeletal)? @ -prior EKG interpreted by me (3pts min.). @ -yes X-rays interpreted by me (1pt min.). @ -no CT interpreted by me (1pt min.). @ -Yes negative for acute disease U/S interpreted by me (1pt. min.). @ -no What testing was considered but not performed or refused? (CT, X-rays, U/S, labs)? Why? @ -none What meds were considered but not given or refused? Why? @ -none Did you discuss the management of the patient with other professionals (professionals i.e. , PA, ASSISTANT FLOOR COVERING PRINTER, lab, RT, psych nurse, child protective services social worker, pump stitcher, te acher, legal compliance officer, rn field case manager)? Give summary @ -no Was smoking cessation discussed for >3mins.? @ -no Was critical care preformed (if so, how long)? @ -no Were there social determinants of health that impacted care today? How? (Homelessness, low income, unemployed, alcoholism, drug addiction, transportation, low edu. Level, literacy, decrease access to med. care, custodial, rehab)? @ -none Was there de-escalation of care discussed even if they declined (Discuss DNR or withdrawal of care, Hospice)? DNR status @ -no What co-morbidities impacted this encounter? (DM, HTN, Smoking, COPD, CAD, Cancer, CVA, ARF, Chemo, Hep., AIDS, mental health diagnosis, sleep apnea, morbid obesity)? @ -none Was patient admitted / discharged? Hospital course, mention meds given and route, prescriptions, significant lab abnormalities, going to OR and other pertinent info. @ -67 female to the ER for evaluation of back pain and influenza. Imaging negative patient feels well and can be discharged home Discharge Undiagnosed new problem with uncertain prognosis? @ -no Drug Therapy requiring intensive monitoring for toxicity (Heparin, Nitro, Insulin, Cardizem)? @ -no Were any procedures done? @ -no Diagnosis/symptom? @ - Acute, or Chronic, or Acute on Chronic? @ -Acute Uncomplicated (without systemic symptoms) or Complicated (systemic symptoms)? @ -Complicated Side effects of treatment? @ -no Exacerbation, Progression, or Severe Exacerbation? @ -exacerbation Poses a threat to life or bodily function? How? (Chest pain, [place], [place], pneumonia, PE, COPD, DKA, ARF, appy, cholecystitis, CVA, Diverticulitis, Homicidal, Suicidal, threat to staff... and all critical care pts) @ -yes with significant febrile illness fever influenza and back pain (Jose Clemons) Medical Decision Making <Lula Varela - Last Filed: 06/06/23 16:37> - Lab Data Result diagrams: 06/06/23 16:54 06/06/23 16:54 - Radiology Data Radiology results: report reviewed (CT of pelvis negative for acute disease), image reviewed <Jose Clemons - Last Filed: 06/15/23 21:56> - Medical Decision Making I completed the quick note portion of this chart signed Lula Varela PA-C (Lula Varela) 67 female to ER for evaluation of back pain with fever, positive for influenza pain is well-controlled patient feels well can be discharged home (Jose Clemons) - Lab Data Lab Results 06/06/23 06/06/23 06/06/23 Range/Units 16:54 16:54 16:54 WBC 3.0 L (3.8-10.6) k/uL RBC 5.05 (3.80-5.40) m/uL Hgb 15.3 (11.4-16.0) gm/dL Hct 46.5 H (34.0-46.0) % MCV 92.1 (80.0-100.0) fL MCH 30.3 (25.0-35.0) pg MCHC 32.9 (31.0-37.0) g/dL RDW 12.6 (11.5-15.5) % Plt Count 194 (150-450) k/uL MPV 7.4 Neutrophils % 71 % Lymphocytes % 14 % Monocytes % 10 % Eosinophils % 0 % Basophils % 1 % Neutrophils # 2.1 (1.3-7.7) k/uL Lymphocytes # 0.4 L (1.0-4.8) k/uL Monocytes # 0.3 (0-1.0) k/uL Eosinophils # 0.0 (0-0.7) k/uL Basophils # 0.0 (0-0.2) k/uL Sodium 136 L (137-145) mmol/L Potassium 4.2 (3.5-5.1) mmol/L Chloride 103 (98-107) mmol/L Carbon Dioxide 26 (22-30) mmol/L Anion Gap 7 mmol/L BUN 12 (7-17) mg/dL Creatinine 0.56 (0.52-1.04) mg/dL Est GFR (CKD-EPI)AfAm >90 (>60 ml/min/1.73 sqM) Est GFR (CKD-EPI)NonAf >90 (>60 ml/min/1.73 sqM) Glucose 99 (74-99) mg/dL Plasma Lactic Acid Baltazar 0.7 (0.7-2.0) mmol/L Calcium 9.0 (8.4-10.2) mg/dL Phosphorus (2.5-4.5) mg/dL Magnesium (1.6-2.3) mg/dL Total Bilirubin 0.5 (0.2-1.3) mg/dL AST 46 H (14-36) U/L ALT 54 H (4-34) U/L Alkaline Phosphatase 99 (38-126) U/L Total Protein 7.1 (6.3-8.2) g/dL Albumin 4.3 (3.5-5.0) g/dL Amylase 61 (30-110) U/L Lipase 293 (23-300) U/L Urine Color Urine Appearance (Clear) Urine pH (5.0-8.0) Ur Specific Sandstone (1.001-1.035) Urine Protein (Negative) Urine Glucose (UA) (Negative) Urine Ketones (Negative) Urine Blood (Negative) Urine Nitrite (Negative) Urine Bilirubin (Negative) Urine Urobilinogen (<2.0) mg/dL Ur Leukocyte Esterase (Negative) Influenza Type A (PCR) (Not Detectd) Influenza Type B (PCR) (Not Detectd) RSV (PCR) (Not Detectd) SARS-CoV-2 (PCR) (Not Detectd) 06/06/23 06/06/23 06/06/23 Range/Units 16:54 17:57 20:15 WBC (3.8-10.6) k/uL RBC (3.80-5.40) m/uL Hgb (11.4-16.0) gm/dL Hct (34.0-46.0) % MCV (80.0-100.0) fL MCH (25.0-35.0) pg MCHC (31.0-37.0) g/dL RDW (11.5-15.5) % Plt Count (150-450) k/uL MPV Neutrophils % % Lymphocytes % % Monocytes % % Eosinophils % % Basophils % % Neutrophils # (1.3-7.7) k/uL Lymphocytes # (1.0-4.8) k/uL Monocytes # (0-1.0) k/uL Eosinophils # (0-0.7) k/uL Basophils # (0-0.2) k/uL Sodium (137-145) mmol/L Potassium (3.5-5.1) mmol/L Chloride (98-107) mmol/L Carbon Dioxide (22-30) mmol/L Anion Gap mmol/L BUN (7-17) mg/dL Creatinine (0.52-1.04) mg/dL Est GFR (CKD-EPI)AfAm (>60 ml/min/1.73 sqM) Est GFR (CKD-EPI)NonAf (>60 ml/min/1.73 sqM) Glucose (74-99) mg/dL Plasma Lactic Acid Baltazar (0.7-2.0) mmol/L Calcium (8.4-10.2) mg/dL Phosphorus 3.5 (2.5-4.5) mg/dL Magnesium 1.9 (1.6-2.3) mg/dL Total Bilirubin (0.2-1.3) mg/dL AST (14-36) U/L ALT (4-34) U/L Alkaline Phosphatase (38-126) U/L Total Protein (6.3-8.2) g/dL Albumin (3.5-5.0) g/dL Amylase (30-110) U/L Lipase (23-300) U/L Urine Color Yellow Urine Appearance Clear (Clear) Urine pH 6.5 (5.0-8.0) Ur Specific [place] 1.022 (1.001-1.035) Urine Protein Trace H (Negative) Urine Glucose (UA) 3+ H (Negative) Urine Ketones 2+ H (Negative) Urine Blood Negative (Negative) Urine Nitrite Negative (Negative) Urine Bilirubin Negative (Negative) Urine Urobilinogen <2.0 (<2.0) mg/dL Ur Leukocyte Esterase Negative (Negative) Influenza Type A (PCR) Not Detected (Not Detectd) Influenza Type B (PCR) Detected A (Not Detectd) RSV (PCR) Not Detected (Not Detectd) SARS-CoV-2 (PCR) Not Detected (Not Detectd) Disposition <Lula Varela - Last Filed: 06/06/23 16:37> Is patient prescribed a controlled substance at d/c from ED?: No Time of Disposition: 19:40 <Jose Clemons - Last Filed: 06/15/23 21:56> Clinical Impression: Back pain, Fever, Influenza Disposition: HOME SELF-CARE Condition: Good Instructions (If sedation given, give patient instructions): Fever in Adults (ED), Influenza (ED), Back Pain (ED) Referrals: Harshil Robledo DO [Primary Care Provider] - 1-2 days
[2023-06-06 17:06] LABS: Basophils % (A) 1 %; Eosinophils % (A) 0 %; HCT 46.5 % (34.0-46.0); HGB 15.3 gm/dL (11.4-16.0); Lymphocytes # (A) 0.4 k/uL (1.0-4.8); Lymphocytes % (A) 14 %; MCH 30.3 pg (25.0-35.0); MCHC 32.9 g/dL (31.0-37.0); MCV 92.1 fL (80.0-100.0); Mean Platelet Volume 7.4; Monocytes # (A) 0.3 k/uL (0-1.0); Monocytes % (A) 10 %; Neutrophils # (A) 2.1 k/uL (1.3-7.7); Neutrophils % (A) 71 %; Platelet Count 194 k/uL (150-450); RBC 5.05 m/uL (3.80-5.40); RDW 12.6 % (11.5-15.5)
[2023-06-06 17:15] LABS: Magnesium 1.9 mg/dL (1.6-2.3); Phosphorus 3.5 mg/dL (2.5-4.5)
[2023-06-06 17:17] LABS: ALT 54 U/L (4-34); AST 46 U/L (14-36); African American GFR (CKD) >90 (>60 ml/min/1.73 sqM); Albumin 4.3 g/dL (3.5-5.0); Alkaline Phosphatase 99 U/L (38-126); Amylase 61 U/L (30-110); Anion Gap 7 mmol/L; Blood Urea Nitrogen 12 mg/dL (7-17); Carbon Dioxide 26 mmol/L (22-30); Chloride 103 mmol/L (98-107); Glucose 99 mg/dL (74-99); Lipase 293 U/L (23-300); Non-African American GFR(CKD) >90 (>60 ml/min/1.73 sqM); Potassium 4.2 mmol/L (3.5-5.1); Sodium 136 mmol/L (137-145); Total Bilirubin 0.5 mg/dL (0.2-1.3); Total Protein 7.1 g/dL (6.3-8.2)
[2023-06-06] MEDS: ACETAMINOPHEN TAB 500 MG TAB PO STA (18:01)
[2023-06-06] MEDS: IBUPROFEN 800 MG TAB PO STA (18:01)
[2023-06-06] MEDS: ACETAMINOPHEN IV (For NPO) 1,000 MG in EMPTY BAG 1 BAG IVPB STA (18:16)
[2023-06-06] MEDS: HYDROmorphone 1 MG/ML 1 ML SYRINGE IVP STA (18:43)
[2023-06-06] MEDS: IBUPROFEN IV 800 MG in SODIUM CHLORIDE 0.9% 250 ML IV ONE (18:45)
--- NOTE | 2023-06-06 19:31 | CT ---
EXAMINATION TYPE: CT abdomen pelvis wo con DATE OF EXAM: 06/06/2023 COMPARISON: 03/28/2020 HISTORY: abd pain, radiates to back, N/V. CT DLP: 454.9 mGycm Automated exposure control for dose reduction was used. TECHNIQUE: Helical acquisition of images was performed from the lung bases through the pelvis. FINDINGS: The lungs are clear. There is surgical absence of the gallbladder.. There is no biliary ductal dilatation. There is no organomegaly of the liver, pancreas, spleen or adrenal glands. There is a 2 - 3 mm nonobstructing left renal calculus. There are no right renal calculi. There is no hydronephrosis bilaterally. The caliber of the abdominal aorta is normal and there is no retroperitoneal adenopathy or hemorrhage . The bowel loops are normal in caliber is no evidence of obstruction. No inflammatory changes are iden tified in the mesentery and there is no free intraperitoneal air or fluid. There is no pelvic mass, free fluid, abscess or adenopathy. The osseous structures and soft tissues are unremarkable. IMPRESSION: 2-3 mm nonobstructing left renal calculus with no other significant abnormality seen.
[2023-06-06 19:46] VITALS: TEMP 98.6
[2023-06-06] MEDS: KETOROLAC 15 MG/ML 1 ML VIAL IVP STA (20:07)
[2023-06-06] MEDS: DEXAMETHASONE SOD PHOSPHATE 10 MG/ML 1 ML VIAL IVP STA (20:08)
[2023-06-06] MEDS: IBUPROFEN 600 MG STARTER PACK 4 TAB BTL PO STA (20:08)
[2023-06-06] MEDS: traMADol 50 MG STARTER PACK 3 TAB BTL PO STA (20:08)
[2023-06-06 20:25] VITALS: BP 135/79; PULSE 78; RESP 18
[2023-06-06 20:46] LABS: Appearance,Urine Clear (Clear); Bilirubin,Urine Negative (Negative); Blood,Urine Negative (Negative); Color,Urine Yellow; Glucose,Urine (UA) 3+ (Negative); Leukocyte Esterase,Urine Negative (Negative); Nitrite,Urine Negative (Negative); PH, Urine 6.5 (5.0-8.0); Protein,Urine Trace (Negative); Specific Gravity,Urine 1.022 (1.001-1.035); Urobilinogen,Urine <2.0 mg/dL (<2.0)
[2023-06-06 20:58] LABS: Ketones,Urine 2+ (Negative)
== END 2023-06-06 20:18 | disposition home or self-care (01) ==
LOC: EC 15:45
DX: J10.1 Influenza due to other identified influenza virus with other respiratory manifestations (principal); M54.9 Dorsalgia, unspecified; Z11.52 Encounter for screening for COVID-19; Z88.1 Allergy status to other antibiotic agents; Z88.2 Allergy status to sulfonamides; Z88.5 Allergy status to narcotic agent; Z86.73 Personal history of transient ischemic attack (TIA), and cerebral infarction without residual deficits
CPT/HCPCS: 99284; 96365; 96375 ×4; 36415; 80053; 82150; 83605; 83690; 83735; 84100; 85025; 81003; 87636; 74176; J1100; J1170; J0131; J1885; J1741